=== PATIENT | male | born 1950 | race Caucasian/White ===

== ENCOUNTER → 2016-10-11 | Outpatient (CLI) | payer BC ==
[~2016-10-11] MED LIST: AMLO5CAP3 PO; AZAT50TA17 PO; BUPRTAB51 PO; BUSP5TAB59 PO; CELE100C PO; CLOP1TAB15 PO; COQ PO; ESCI1TAB10 PO; HYDR12.55 PO; KETO2SHA TOP; METO25TA3 PO; MULT-513 PO; NITR0.4S UT; RMCI IV; ROSU40TA PO; ZNTT/150 PO; ZOLP10TA PO
--- NOTE | 2016-10-11 12:32 | DIAGNOSTIC IMAGING REPORT ---
CHEST 2 VIEWS ROUTINE CLINICAL HISTORY: COUGH dyspnea COMPARISON STUDY: 06/20/2014 FINDINGS: Small parenchymal infiltrate medial posterior aspect left lower lobe. Lungs otherwise appear clear. Prior median sternotomy. IMPRESSION: Small parenchymal infiltrate posterior aspect medial left lower lobe Electronically signed by: Tao Dai M.D. 10/11/2016 12:31 PM Dictated Date/Time: 10/11/2016 12:29 PM
== END | disposition home or self-care (01) ==
LOC: C.RAD1850 12:08
PROVIDERS: ATTEND Nurse Practitioner Family
DX: R05 Cough (principal); R06.00 Dyspnea, unspecified; R91.8 Other nonspecific abnormal finding of lung field

== ENCOUNTER → 2016-10-18 | Outpatient (CLI) | payer BC ==
--- NOTE | 2016-10-18 10:30 | DIAGNOSTIC IMAGING REPORT ---
CHEST 2 VIEWS ROUTINE HISTORY: COUGH COMPARISON: Chest 10/11/2016. FINDINGS: Postoperative changes. The heart remains mildly enlarged. No pleural effusions. No pneumothorax. No new focal lung consolidations to suggest pneumonia. No evidence for pulmonary edema. Bibasilar interstitial thickening remains unchanged. Therefore, this is likely chronic. Hazy appearance the left lung base likely represents prominent mediastinal fat. This also remains unchanged. IMPRESSION: No significant change compared to the prior study. No acute process. Electronically signed by: Robert Gallo M.D. 10/18/2016 10:28 AM Dictated Date/Time: 10/18/2016 10:27 AM
== END | disposition home or self-care (01) ==
LOC: C.RAD1850 09:55
PROVIDERS: ATTEND Nurse Practitioner Family
DX: R05 Cough (principal)

== ENCOUNTER 2016-12-07 17:12 | Emergency (ER) | payer BC ==
[~2016-12-07] VITALS: Ht 182.9 cm; Wt 107.0 kg
[2016-12-07 17:12] VITALS: O2SAT 94
[~2016-12-07 17:12] MED LIST changes: -CLOP1TAB15 PO
[2016-12-07 17:14] VITALS: TEMP 36.8; Ht 182.9 cm; Wt 107.0 kg
--- NOTE | 2016-12-07 17:30 | EMERGENCY ROOM VISIT NOTE ---
History Report prepared by Patrick: Dangelo Wellington Under the Supervision of: Dr. Natan Sarmiento M.D. 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 Associated symptoms include tingling in right fingers, and shortness of breath. The patient states that he was walking to his car after work today when he first became dizzy. He leaned against his car for a few minutes before coming in to the ED. The patient has a history of two past heart attacks. He also has a history of neuropathy. He denies any chest pain or additional associated symptoms. 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 Please see Additional Medical History Sheet. Past Medical & Surgical Medical Problems: (1) Depressive Disorder Nec (2) Esophageal Reflux (3) HTN (hypertension) (4) Hyperlipidemia Nec/Nos (5) CT (myocardial infarction) (6) Pure Hypercholesterolem Surgical Problems: (1) Hx of CABG Family History Gallbladder disease Heart disease Hypertension Social History Smoking Status: Never Smoker Alcohol Use: none Drug Use: none Marital Status: Housing Status: lives with family Occupation Status: employed Current/Historical Medications Scheduled Amlodipine Besylate-Benazepril (Amlodipine Besylate/Benaz), 1 CAP PO DAILY Azathioprine (Imuran), 50 MG PO BID Bupropion (Wellbutrin-Xl), 300 MG PO DAILY Buspirone Hcl (Buspirone Hcl), 10 MG PO BID Celecoxib (Celebrex), 100 MG PO DAILY Clopidogrel (Plavix), 75 MG PO DAILY Escitalopram Oxalate (Lexapro), 20 MG PO DAILY Hydrochlorothiazide (Hydrochlorothiazide), 12.5 MG PO DAILY Infliximab (Remicade), IV UD Multivitamins/Minerals (Mvi With Minerals), 1 TAB PO DAILY Nitroglycerin (Nitrostat), 0.4 MG UT PRN Ranitidine (Zantac), 150 MG PO DAILY Rosuvastatin Calcium (Crestor), 40 MG PO HS Zolpidem Tartrate (Ambien), 10 MG PO HS Allergies Coded Allergies: Amoxicillin (Verified Allergy, Severe, face swelling, 10/16/15) Physical Exam Vital Signs Date Time Temp Pulse Resp B/P Pulse Ox O2 Delivery O2 Flow Rate FiO2 12/07/16 20:53 67 18 156/92 94 Room Air 12/07/16 19:15 12/07/16 19:15 61 18 142/80 95 Room Air 64 148/86 75 157/91 12/07/16 17:48 58 22 142/86 94 12/07/16 17:42 58 12/07/16 17:14 36.8 71 16 161/92 95 Room Air 12/07/16 17:12 94 Physical Exam GENERAL: Patient awake, alert, oriented x 3. Patient follows commands. Patient does not appear toxic. Patient is adequately hydrated and well- nourished. SKIN: No erythema, pallor, cyanosis or rash HEENT: No nystagmus, carotids strong and equal. No focal deficits noted. Normal head, pupils equal, reactive to light and accommodation. Oral cavity and posterior pharynx appear normal. Neck: Without adenopathy, no neck vein distention. LUNGS: Clear to auscultation. No wheezes, no rales, no rhonchi. HEART: No murmurs. No gallops. No rubs ABDOMEN: Obese. No masses, no rebound, no hepatomegaly or splenomegaly. EXTREMITIES: Moves all extremities well. No signs of trauma. No pedal or pretibial edema. NEUROLOGIC: Cranial nerves II-XII within normal limits. No gross motor sensory function deficits. Medical Decision & Procedures ER Provider Diagnostic Interpretation: CT results are interpretations by the radiologist and per my review. CT OF THE HEAD WITHOUT CONTRAST CLINICAL HISTORY: Dizzy. COMPARISON STUDY: CTA of the head July 22, 2014 and MRI of the brain February 10, 2016. CT DOSE: 700.35 mGycm TECHNIQUE: Helical axial images of the head were obtained without IV contrast. Automated exposure control was utilized for the study. FINDINGS: No acute intracranial hemorrhage, midline shift or mass effect is present. Ventricular system is stable. Basilar cisterns are patent. No extra axial collections are present. Donis-white differentiation is maintained. There are no findings to suggest acute dural sinus thrombosis or acute territorial infarct. There is no calvarial fracture. There is mild mucosal thickening of the sinuses. IMPRESSION: No acute intracranial findings. Electronically signed by: Andrea Rivera M.D. 12/07/2016 6:06 PM Dictated Date/Time: 12/07/2016 6:04 PM X ray results are stated below per my interpretation and the radiologist's interpretation. CHEST 2 VIEWS ROUTINE CLINICAL HISTORY: Dizzy. COMPARISON STUDY: Chest radiograph October 18, 2016. FINDINGS: There are median sternotomy wires and clips from bypass grafting. No pneumothorax or pleural effusion is present. Cardiomegaly is unchanged. The appearance the chest is unchanged. IMPRESSION: No acute cardiopulmonary findings. Stable cardiomegaly. Electronically signed by: Andrea Rivera M.D. 12/07/2016 6:21 PM Dictated Date/Time: 12/07/2016 6:20 PM Laboratory Results 12/07/16 17:36 12/07/16 17:36 Test 12/07/16 00:00 12/07/16 17:36 Urine Color YELLOW Urine Appearance CLEAR (CLEAR) Urine pH 6.5 (4.5-7.5) Urine Specific [place] 1.016 (1.000-1.030) Urine Protein NEG (NEG) Urine Glucose (UA) NEG (NEG) Urine Ketones NEG (NEG) Urine Occult Blood NEG (NEG) Urine Nitrite NEG (NEG) Urine Bilirubin NEG (NEG) Urine Urobilinogen NEG (NEG) Urine Leukocyte Esterase NEG (NEG) Red Blood Count 4.61 M/uL (4.7-6.1) Mean Corpuscular Volume 91.3 fL (80-100) Mean Corpuscular Hemoglobin 31.0 pg (25-34) Mean Corpuscular Hemoglobin Concent 34.0 g/dl (32-36) RDW Standard Deviation 46.1 fL (36.4-46.3) RDW Coefficient of Variation 13.8 % (11.5-14.5) Mean Platelet Volume 8.9 fL (7.4-10.4) Anion Gap 7.0 mmol/L (3-11) Est Creatinine Clear Calc Drug Dose 90.6 ml/min Estimated GFR () 89.9 Estimated GFR (Non- 77.5 BUN/Creatinine Ratio 19.5 (10-20) Calcium Level 8.8 mg/dl (8.5-10.1) Troponin I < 0.015 ng/ml (0-0.045) Laboratory results as stated above per my review. ECG Rate (beats per minute): 62 Rhythm: sinus rhythm Findings: nonspecific-ST abn, left axis deviation ED Course 171: Past medical records reviewed. The patient was evaluated in room A12. A complete history and physical examination was performed. 2007: Upon reevaluation, the patient reports feeling great. He will complete an ambulatory trial for further evaluation. 2029: Patient's ambulatory trial went well. I discussed today's findings with the patient and his . They verbalized agreement of the treatment plan. The patient was discharged home with instructions to follow up with Dr. Koo. Medical Decision Nurses notes reviewed. Medical history sheet reviewed. Differential diagnosis includes but is not limited to: TIA, CVA, benign positional vertigo, vestibular neuronitis, anemia, Meniere's disease. The patient complains of dizziness but not true vertigo. Multiple labs, EKG, urinalysis and imaging were evaluated. Please see above. The patient has no evidence of a TIA or CVA on exam or by imaging. Labs are unremarkable. The patient's dizziness resolved without medication. I believe the patient can safely return home but will need to follow-up with his family physician within the next 7 days. He is to return here sooner if the dizziness gets worse. Impression Primary Impression: Dizziness Scribe Attestation The scribe's documentation has been prepared under my direction and personally reviewed by me in its entirety. I confirm that the note above accurately reflects all work, treatment, procedures, and medical decision making performed by me. Departure Information Dispostion Home / Self-Care Referrals Lacho Koo M.D. (PCP) Forms HOME CARE DOCUMENTATION FORM, IMPORTANT VISIT INFORMATION Patient Instructions My [facility] Additional Instructions Follow-up with your family physician within the next 7 days. Return here sooner if the dizziness gets much worse. Drink extra fluids.
[2016-12-07 17:46] LABS: HEMATOCRIT 42.1 % (42-52); MEAN CELL VOLUME 91.3 fL (80-100); MEAN PLATELET VOLUME 8.9 fL (7.4-10.4); PLATELET COUNT 201 K/uL (130-400); RED BLOOD COUNT 4.61 M/uL (4.7-6.1); WHITE BLOOD COUNT 6.64 K/uL (4.8-10.8)
[2016-12-07 18:05] LABS: BLOOD UREA NITROGEN 20 mg/dl (7-18); BUN/CREATININE RATIO 19.5 (10-20); CALCIUM 8.8 mg/dl (8.5-10.1); CARBON DIOXIDE 26 mmol/L (21-32); CHLORIDE 107 mmol/L (98-107); GLUCOSE 95 mg/dl (70-99); POTASSIUM 3.6 mmol/L (3.5-5.1); SODIUM 140 mmol/L (136-145)
--- NOTE | 2016-12-07 18:08 | DIAGNOSTIC IMAGING REPORT ---
CT OF THE HEAD WITHOUT CONTRAST CLINICAL HISTORY: Dizzy. COMPARISON STUDY: CTA of the head July 22, 2014 and MRI of the brain February 10, 2016. CT DOSE: 700.35 mGycm TECHNIQUE: Helical axial images of the head were obtained without IV contrast. Automated exposure control was utilized for the study. FINDINGS: No acute intracranial hemorrhage, midline shift or mass effect is present. Ventricular system is stable. Basilar cisterns are patent. No extra axial collections are present. Donis-white differentiation is maintained. There are no findings to suggest acute dural sinus thrombosis or acute territorial infarct. There is no calvarial fracture. There is mild mucosal thickening of the sinuses. IMPRESSION: No acute intracranial findings. Electronically signed by: Andrea Rivera M.D. 12/07/2016 6:06 PM Dictated Date/Time: 12/07/2016 6:04 PM
[2016-12-07] MEDS ORDERED: CLOP1TAB15 PO (18:10)
--- NOTE | 2016-12-07 18:23 | DIAGNOSTIC IMAGING REPORT ---
CHEST 2 VIEWS ROUTINE CLINICAL HISTORY: Dizzy. COMPARISON STUDY: Chest radiograph October 18, 2016. FINDINGS: There are median sternotomy wires and clips from bypass grafting. No pneumothorax or pleural effusion is present. Cardiomegaly is unchanged. The appearance the chest is unchanged. IMPRESSION: No acute cardiopulmonary findings. Stable cardiomegaly. Electronically signed by: Andrea Rivera M.D. 12/07/2016 6:21 PM Dictated Date/Time: 12/07/2016 6:20 PM
[2016-12-07 19:37] LABS: URINE APPEARANCE CLEAR (CLEAR); URINE BILIRUBIN NEG (NEG); URINE COLOR YELLOW; URINE NITRITE NEG (NEG); URINE PH 6.5 (4.5-7.5); URINE SPECIFIC GRAVITY 1.016 (1.000-1.030); UROBILINOGEN NEG (NEG); ZZUR CULT IF INDIC CLEAN CATCH NO
[2016-12-07 19:47] LABS: MANUAL MICROSCOPIC REQUIRED? NO; REVIEW REQ? NO
[2016-12-07 20:53] VITALS: BP 156/92; PULSE 67; O2SAT 94
== END 2016-12-07 20:54 | disposition home or self-care (01) ==
LOC: C.EDB 17:13 → C.EDA 20:54
DX: R42 Dizziness and giddiness (principal); R06.02 Shortness of breath; I10 Essential (primary) hypertension; E78.00 Pure hypercholesterolemia, unspecified; K21.9 Gastro-esophageal reflux disease without esophagitis; F32.9 Major depressive disorder, single episode, unspecified; I25.2 Old myocardial infarction; Z79.02 Long term (current) use of antithrombotics/antiplatelets; Z79.899 Other long term (current) drug therapy

== ENCOUNTER → 2016-12-20 | Outpatient (CLI) | payer BC ==
[~2016-12-20] MED LIST changes: +CLOP1TAB15 PO; -COQ PO; -KETO2SHA TOP; -METO25TA3 PO
--- NOTE | 2016-12-20 17:41 | DIAGNOSTIC IMAGING REPORT ---
Brain MRI WITHOUT CONTRAST HISTORY: Mental status change DIZZY TECHNIQUE: Multiplanar multisequence MRI of the brain was performed without the use of contrast. COMPARISON STUDY: 02/10/2016 FINDINGS: There are no areas of restricted diffusion to suggest acute infarction. The midline structures are intact. The paranasal sinuses are clear. The mastoid air cells are clear. The ventricles and sulci are within normal limits for age. There is no mass, hematoma, midline shift. The major vascular flow-voids at the skull base are well maintained. Single focus of increased signal medially superior to the left lateral ventricle unchanged in the prior study. IMPRESSION: No acute intracranial abnormality. No change from the prior exam. Electronically signed by: Tao Dai M.D. 12/20/2016 5:39 PM Dictated Date/Time: 12/20/2016 5:37 PM
== END ==
PROVIDERS: ATTEND Family Medicine
DX: R42 Dizziness and giddiness (principal)

== ENCOUNTER → 2017-09-13 | Outpatient (CLI) | payer OTHER ==
--- NOTE | 2017-09-13 12:48 | DIAGNOSTIC IMAGING REPORT ---
CHEST 2 VIEWS ROUTINE CLINICAL HISTORY: J11.1,R05 INFLUENZA COMPARISON STUDY: 12/07/2016 FINDINGS: There are postsurgical changes of midline sternotomy. The heart is enlarged. There is no lobar consolidation. There is mild basilar interstitial thickening. There are no pleural effusions.[ IMPRESSION: 1. Cardiomegaly 2. No evidence of lobar consolidation 3. Mild basilar interstitial thickening Electronically signed by: Shawn Snow M.D. 09/13/2017 12:47 PM Dictated Date/Time: 09/13/2017 12:46 PM
== END | disposition home or self-care (01) ==
LOC: C.RAD1850 12:22
PROVIDERS: ATTEND Family Medicine
DX: J11.1 Influenza due to unidentified influenza virus with other respiratory manifestations (principal); R05 Cough; I51.7 Cardiomegaly

== ENCOUNTER → 2017-10-17 | Day surgery (SDC) | payer OTHER ==
[2017-10-04 11:11] VITALS: Ht 182.9 cm; Wt 109.1 kg
[~2017-10-17] VITALS: Ht 182.9 cm; Wt 109.1 kg
[~2017-10-17] MED LIST changes: +AMLO10CA2 PO; -AMLO5CAP3 PO; -AZAT50TA17 PO; -BUSP5TAB59 PO; -CELE100C PO; +CLB100 PO; +COQ10 PO; +FENTANYL CITRATE INJ 50 MCG/1 ML 2 ML VIAL ONE; +FLUT0.15 NAE; +GLUCTAB7 PO; -HYDR12.55 PO; +HYDR25TA4 PO; +KETO2SHA TOP; +LIDOCAINE HCL 2% 2 ML VIAL (20MG/ML) ONE; +MIDAZOLAM HCL 1 MG/ML 2ML VIAL ONE; -MULT-513 PO; -NITR0.4S UT; +NTRGSL/4 UT; +PANT40TA PO; +PROPOFOL IV EMULSION 10 MG/ML 20 ML VIAL IV ONE; +VITAMIN B12 PO; +VITAMIN B6 PO; +VITAMIN D PO; -ZNTT/150 PO
--- NOTE | 2017-10-17 13:50 | Endo History and Physical ---
History & Physical Date of Service: Oct 17, 2017. 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., Anxiety, High Cholesterol, Hypertension, Depression Past Surgical History Hx Cardiac Surgery: Yes (HEART CATH/NO STENTS, CABGX 1 VESSELS) Hx Internal Defibrillator: No Hx Pacemaker: No Hx Abdominal Surgery: No Hx of Implantable Prosthesis: No Hx Post-Op Nausea and Vomiting: No Hx Cancer Surgery: No Hx Thoracic Surgery: No Hx Orthopedic: Yes (LEFT JOSE ANGEL, RT SHOULDER ARTHROSCOPY) Hx Urinary Tract Surgery: No Family History Polyp, IBD Social History Smoking Status: Never Smoker Hx Substance Use: No Hx Alcohol Use: Yes (RARELY) Allergies Coded Allergies: Amoxicillin (Verified Allergy, Severe, face swelling, 10/11/17) Current Medications Reported Home Medications Medications Dose Route/Sig Max Daily Dose Days Date Category Dose Instructions Remicade (Infliximab) 100 Mg/10 Ml Inj 1 Dose IV [id number] 10/04/17 Reported Glucosamine Chondroitin (Pscmnmickzr-Hhsllezydkg-Pnt C-) 1 Tab Tab 1 Dose PO BID 10/04/17 Reported 2 TABS IN AM 1 TAB IN PM [Coq10] 1 Tab PO BID 10/04/17 Reported Wellbutrin-Xl (Bupropion HCl) 300 Mg Tabcr 300 Mg PO QAM 10/04/17 Reported Lexapro (Escitalopram Oxalate) 20 Mg Tab 20 Mg PO QAM 10/04/17 Reported Ambien (Zolpidem Tartrate) 10 Mg Tab 10 Mg PO HS 10/04/17 Reported [Vitamin B6] 1 Tab PO QAM 10/04/17 Reported Nitrostat (Nitroglycerin) 0.4 Mg Tab 0.4 Mg UT PRN PRN 10/04/17 Reported [Vitamin D] 1 Tab PO QAM 10/04/17 Reported [Vitamin B12] 1 Tab PO QAM 10/04/17 Reported Lotrel (Amlodipine Besylate-Benazepril) 1 Cap Cap 1 Cap PO QAM 10/04/17 Reported DOSE 10/40 Ketoconazole (Ketoconazole (Topical)) 2 % Sha 1 Appln TOP 2XWK 10/04/17 Reported Crestor (Rosuvastatin Calcium) 40 Mg Tab 40 Mg PO QPM 10/04/17 Reported Plavix (Clopidogrel Bisulfate) 75 Mg Tab 75 Mg PO QAM 10/04/17 Reported Hctz (Hydrochlorothiazide) 25 Mg Tab 25 Mg PO QAM 10/04/17 Reported Celebrex (Celecoxib) 100 Mg Cap 1 Cap PO QAM 10/04/17 Reported Protonix (Pantoprazole Sodium) 40 Mg Tab 2 Tab PO HS 10/04/17 Reported Flonase Allergy Relief (Fluticasone Propionate (Nasal)) 50 Mcg/Act Spr 1 [place] KEYSHAWN DIRECTED 10/04/17 Reported Vital Signs Weight (Kilograms): 109.09 Height (Feet): 6 Height (Inches): 0 Physical Exam General Appearance: WD/WN, no apparent distress Respiratory/Chest: Respiratory effort: no dyspnea Cardiovascular: Heart Auscultation: RRR Abdomen: Inspection & Palpation: soft (UC for surveillance clonoscopy) Assessment and Plan UC for colonoscopy
--- NOTE | 2017-10-17 13:53 | Endo History and Physical ---
History & Physical Date of Service: Oct 17, 2017. Chief Complaint: Hx of tubular adenoma Referring Physician: Maurilio History of Present Illness For colonoscopy Past Medical History Arthritis, Male Genitourinary Prob., Anxiety, High Cholesterol, Hypertension, Depression Past Surgical History Hx Cardiac Surgery: Yes (HEART CATH/NO STENTS, CABGX 1 VESSELS) Hx Internal Defibrillator: No Hx Pacemaker: No Hx Abdominal Surgery: No Hx of Implantable Prosthesis: No Hx Post-Op Nausea and Vomiting: No Hx Cancer Surgery: No Hx Thoracic Surgery: No Hx Orthopedic: Yes (LEFT JOSE ANGEL, RT SHOULDER ARTHROSCOPY) Hx Urinary Tract Surgery: No Family History Polyp, IBD Social History Smoking Status: Never Smoker Hx Substance Use: No Hx Alcohol Use: Yes (RARELY) Allergies Coded Allergies: Amoxicillin (Verified Allergy, Severe, face swelling, 10/17/17) Current Medications Reported Home Medications Medications Dose Route/Sig Max Daily Dose Days Date Category Dose Instructions Remicade (Infliximab) 100 Mg/10 Ml Inj 1 Dose IV [id number] 10/04/17 Reported Glucosamine Chondroitin (Tqumihvvumh-Ydepjybeiho-Pew C-) 1 Tab Tab 1 Dose PO BID 10/04/17 Reported 2 TABS IN AM 1 TAB IN PM [Coq10] 1 Tab PO BID 10/04/17 Reported Wellbutrin-Xl (Bupropion HCl) 300 Mg Tabcr 300 Mg PO QAM 10/04/17 Reported Lexapro (Escitalopram Oxalate) 20 Mg Tab 20 Mg PO QAM 10/04/17 Reported Ambien (Zolpidem Tartrate) 10 Mg Tab 10 Mg PO HS 10/04/17 Reported [Vitamin B6] 1 Tab PO QAM 10/04/17 Reported Nitrostat (Nitroglycerin) 0.4 Mg Tab 0.4 Mg UT PRN PRN 10/04/17 Reported [Vitamin D] 1 Tab PO QAM 10/04/17 Reported [Vitamin B12] 1 Tab PO QAM 10/04/17 Reported Lotrel (Amlodipine Besylate-Benazepril) 1 Cap Cap 1 Cap PO QAM 10/04/17 Reported DOSE 10/40 Ketoconazole (Ketoconazole (Topical)) 2 % Sha 1 Appln TOP 2XWK 10/04/17 Reported Crestor (Rosuvastatin Calcium) 40 Mg Tab 40 Mg PO QPM 10/04/17 Reported Plavix (Clopidogrel Bisulfate) 75 Mg Tab 75 Mg PO QAM 10/04/17 Reported Hctz (Hydrochlorothiazide) 25 Mg Tab 25 Mg PO QAM 10/04/17 Reported Celebrex (Celecoxib) 100 Mg Cap 1 Cap PO QAM 10/04/17 Reported Protonix (Pantoprazole Sodium) 40 Mg Tab 2 Tab PO HS 10/04/17 Reported Flonase Allergy Relief (Fluticasone Propionate (Nasal)) 50 Mcg/Act Spr 1 Driscoll KEYSHAWN DIRECTED 10/04/17 Reported Vital Signs Weight (Kilograms): 109.09 Height (Feet): 6 Height (Inches): 0 Date Time Temp Pulse Resp B/P (MAP) Pulse Ox O2 Delivery O2 Flow Rate FiO2 10/17/17 13:28 36.7 60 16 140/77 (98) 95 Room Air Physical Exam General Appearance: WD/WN Respiratory/Chest: Respiratory effort: no dyspnea Cardiovascular: Heart Auscultation: RRR Abdomen: Inspection & Palpation: soft (UC for colonoscopy) Assessment and Plan UC for colonoscopy
--- NOTE | 2017-10-17 14:40 | Discharge Instructions ---
Endoscopy Patient Instructions Date / Procedure(s) Performed Oct 17, 2017. Colonoscopy Allergy Information Coded Allergies: Amoxicillin (Verified Allergy, Severe, face swelling, 10/17/17) Discharge Date / Findings Oct 17, 2017. Diverticulosis Medication Instructions Stopped Medication(s): Plavix last 10/12 Restart Stopped Medication(s): resume meds Reported Home Medications Medications Dose Route/Sig Max Daily Dose Days Date Category Dose Instructions Remicade (Infliximab) 100 Mg/10 Ml Inj 1 Dose IV [id number] 10/04/17 Reported Glucosamine Chondroitin (Wchgqfdmbuq-Dljswwwcmip-Yva C-) 1 Tab Tab 1 Dose PO BID 10/04/17 Reported 2 TABS IN AM 1 TAB IN PM [Coq10] 1 Tab PO BID 10/04/17 Reported Wellbutrin-Xl (Bupropion HCl) 300 Mg Tabcr 300 Mg PO QAM 10/04/17 Reported Lexapro (Escitalopram Oxalate) 20 Mg Tab 20 Mg PO QAM 10/04/17 Reported Ambien (Zolpidem Tartrate) 10 Mg Tab 10 Mg PO HS 10/04/17 Reported [Vitamin B6] 1 Tab PO QAM 10/04/17 Reported Nitrostat (Nitroglycerin) 0.4 Mg Tab 0.4 Mg UT PRN PRN 10/04/17 Reported [Vitamin D] 1 Tab PO QAM 10/04/17 Reported [Vitamin B12] 1 Tab PO QAM 10/04/17 Reported Lotrel (Amlodipine Besylate-Benazepril) 1 Cap Cap 1 Cap PO QAM 10/04/17 Reported DOSE 10/40 Ketoconazole (Ketoconazole (Topical)) 2 % Sha 1 Appln TOP 2XWK 10/04/17 Reported Crestor (Rosuvastatin Calcium) 40 Mg Tab 40 Mg PO QPM 10/04/17 Reported Plavix (Clopidogrel Bisulfate) 75 Mg Tab 75 Mg PO QAM 10/04/17 Reported Hctz (Hydrochlorothiazide) 25 Mg Tab 25 Mg PO QAM 10/04/17 Reported Celebrex (Celecoxib) 100 Mg Cap 1 Cap PO QAM 10/04/17 Reported Protonix (Pantoprazole Sodium) 40 Mg Tab 2 Tab PO HS 10/04/17 Reported Flonase Allergy Relief (Fluticasone Propionate (Nasal)) 50 Mcg/Act Spr 1 Sadorus KEYSHAWN DIRECTED 2/20/18 Reported Provider Instructions Activity Restrictions - No exercising or heavy lifting for 24 hours. - Do not drink alcohol the day of the procedure. - Do not drive a car or operate machinery until the day after the procedure. - Do not make any important decisions or sign important papers in 24 hours after the procedure. Following Day: - Return to full activity which may include returning to work/school. Diet Start your diet with liquids and light foods (jello, soup, juice, toast). Then eat your usual diet if not nauseated. Treatment For Common After Affects For mild abdominal pain, bloating, or excessive gas: - Rest - Eat lightly - Lie on right side Follow-Up Information Follow-up with Maurilio as scheduled Anesthesia Information What You Should Know You have had a procedure that required some medicine to reduce anxiety and discomfort. This treatment is called moderate sedation. After receiving the treatment, you may be sleepy, but you will be able to breathe on your own. The effects of the treatment may last for several hours. Follow these instructions along with Activity/Diet recommendations noted above: * Do NOT do anything where dizziness or clumsiness would be dangerous. * Rest quietly at home today, then you can be up and about tomorrow. * Have a responsible person stay with you the rest of today. * You may have had an I.V. today. If so, you may take the dressing off later today. Recommendations Call your doctor if: * Trouble breathing * Continuous vomiting for more than 24 hours * Temperature above 101 degrees * Severe abdominal pain or bloating * Pain not relieved by pain medicine ordered * There is increased drainage or redness from any incision * A large amount of rectal bleeding greater than 2-3 tablespoons. (If you had a polyp/s removed or have hemorrhoids, a small amount of blood - from the rectum is to be expected.) * You have any unanswered questions or concerns. IN THE EVENT OF A SERIOUS EMERGENCY, GO TO THE NEAREST EMERGENCY ROOM Your discharge instructions were prepared by provider Ramses Campbell. Patient Instructions Signature Page Chun Hernandez Patient (or Guardian) Signature/Date: I have read and understand the instructions given to me by my caregivers. Caregiver/RN/Doctor Signature/Date: The above-named patient and/or guardian has received patient instructions on this date. + Original Patient Signature Page (only) stays with chart. Please make copy for patient.
--- NOTE | 2017-10-17 14:45 | GI REPORT ---
Procedure Date: 10/17/2017 1:30 PM Procedure: Colonoscopy Indications: Follow-up of chronic ulcerative pancolitis Medicines: Fentanyl 100 micrograms IV, Midazolam 2 mg IV, Propofol total dose 150 mg IV, Lidocaine 40 mg IV Complications: No immediate complications. Estimated Blood Loss: Estimated blood loss was minimal. Procedure: Pre-Anesthesia Assessment: - Prior to the procedure, a History and Physical was performed, and patient medications, allergies and sensitivities were reviewed. The patient's tolerance of previous anesthesia was reviewed. - The risks and benefits of the procedure and the sedation options and risks were discussed with the patient. All questions were answered and informed consent was obtained. After I obtained informed consent, the scope was passed under direct vision. Throughout the procedure, the patient's blood pressure, pulse, and oxygen saturations were monitored continuously. The Scope was introduced through the anus and advanced to the cecum, identified by appendiceal orifice and ileocecal valve. The colonoscopy was performed without difficulty. The patient tolerated the procedure well. The quality of the bowel preparation was excellent. Findings: A few diverticula were found in the sigmoid colon. The cecum appeared normal. Biopsies were taken with a cold forceps for histology. The ascending colon appeared normal. Biopsies were taken with a cold forceps for histology. The hepatic flexure appeared normal. Biopsies were taken with a cold forceps for histology. The transverse colon appeared normal. Biopsies were taken with a cold forceps for histology. The splenic flexure appeared normal. Biopsies were taken with a cold forceps for histology. The descending colon appeared normal. Biopsies were taken with a cold forceps for histology. The sigmoid colon appeared normal. Biopsies were taken with a cold forceps for histology. The rectum appeared normal. Biopsies were taken with a cold forceps for histology. Impression: - Diverticulosis in the sigmoid colon. - The cecum is normal. Biopsied. - The ascending colon is normal. Biopsied. - The hepatic flexure is normal. Biopsied. - The transverse colon is normal. Biopsied. - The splenic flexure is normal. Biopsied. - The descending colon is normal. Biopsied. - The sigmoid colon is normal. Biopsied. - The rectum is normal. Biopsied. Recommendation: - Discharge patient to home (ambulatory). - Continue present medications. - Await pathology results. - Return to primary care physician PRN. Kyle Martines MD 10/17/2017 2:45:03 PM This report has been signed electronically. Note Initiated On: 10/17/2017 1:30 PM I attest to the content of the Intraoperative Record and orders documented therein, exceptions below
--- NOTE | 2017-10-17 15:04 | Anesthesiology Progress Note ---
Anesthesia Post Op Note Date & Time Oct 17, 2017 at 15:04 Vital Signs Pain Intensity: 0 Vital Signs Past 12 Hours Date Time Temp Pulse Resp B/P (MAP) Pulse Ox O2 Delivery O2 Flow Rate FiO2 10/17/17 14:51 68 18 135/81 (99) 96 Room Air 10/17/17 14:36 36.0 59 12 131/81 (98) 93 Room Air 10/17/17 13:28 36.7 60 16 140/77 (98) 95 Room Air Notes Mental Status: alert / awake / arousable, participated in evaluation Pt Amnestic to Procedure: Yes Nausea / Vomiting: adequately controlled Pain: adequately controlled Airway Patency, RR, SpO2: stable & adequate BP & HR: stable & adequate Hydration State: stable & adequate Anesthetic Complications: no major complications apparent
[2017-10-17 15:06] VITALS: BP 139/80; PULSE 55; O2SAT 94
== END | disposition home or self-care (01) ==
LOC: C.GI 13:02
PROVIDERS: ATTEND Internal Medicine Gastroenterology
DX: K51.00 Ulcerative (chronic) pancolitis without complications (principal); K57.30 Diverticulosis of large intestine without perforation or abscess without bleeding; Z86.010 Personal history of colon polyps; M19.90 Unspecified osteoarthritis, unspecified site; F41.9 Anxiety disorder, unspecified; E78.00 Pure hypercholesterolemia, unspecified; I10 Essential (primary) hypertension; F32.9 Major depressive disorder, single episode, unspecified; G47.33 Obstructive sleep apnea (adult) (pediatric); I25.2 Old myocardial infarction; E78.5 Hyperlipidemia, unspecified; K21.9 Gastro-esophageal reflux disease without esophagitis; K58.9 Irritable bowel syndrome, unspecified; Z96.642 Presence of left artificial hip joint; Z79.02 Long term (current) use of antithrombotics/antiplatelets; Z83.71 Family history of colonic polyps; Z95.1 Presence of aortocoronary bypass graft; Z88.1 Allergy status to other antibiotic agents; Z90.89 Acquired absence of other organs

== ENCOUNTER 2017-10-21 06:04 | Inpatient (IN) | payer OTHER ==
[2017-10-04 11:24] VITALS: Ht 182.9 cm; Wt 109.1 kg
--- NOTE | 2017-10-11 10:56 | PAT Medication Instructions ---
Service Date Oct 11, 2017. Current Home Medication List Amlodipine Besylate-Benazepril (Lotrel), 1 CAP PO QAM Bupropion (Wellbutrin-Xl), 300 MG PO QAM Celecoxib (Celebrex), 1 CAP PO QAM Clopidogrel (Plavix), 75 MG PO QAM Escitalopram Oxalate (Lexapro), 20 MG PO QAM Fluticasone Propionate (Nasal) (Flonase Allergy Relief), 1 SPRAY KEYSHAWN DIRECTED Auabonrjlog-Kpswzlpxxrj-Zdm C- (Glucosamine Chondroitin), 1 DOSE PO BID Hydrochlorothiazide (Hctz), 25 MG PO QAM Infliximab (Remicade), 1 DOSE IV [id number] Ketoconazole (Topical) (Ketoconazole), 1 APPLN TOP 2XWK Nitroglycerin (Nitrostat), 0.4 MG UT PRN PRN for Chest Pain Pantoprazole (Protonix), 2 TAB PO HS Rosuvastatin Calcium (Crestor), 40 MG PO QPM Zolpidem Tartrate (Ambien), 10 MG PO HS [Coq10], 1 TAB PO BID [Vitamin B12], 1 TAB PO QAM [Vitamin B6], 1 TAB PO QAM [Vitamin D], 1 TAB PO QAM Medication Instructions For Your Scheduled Surgery - Contact your surgeon for instructions for: Celecoxib (Celebrex), 1 CAP PO QAM -Follow your prescriber's instructions for: Infliximab (Remicade), 1 DOSE IV [id number] - Continue as directed: Nitroglycerin (Nitrostat), 0.4 MG UT PRN PRN for Chest Pain - Hold the following medications starting today (10/11): Nsravbdezmq-Rdmhnedlhdn-Bmq C- (Glucosamine Chondroitin), 1 DOSE PO BID [Coq10], 1 TAB PO BID - Hold the following medications 5 days prior to surgery per your 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: Clopidogrel (Plavix), 75 MG PO QAM - Hold the following medications 24 hours prior to surgery: Ketoconazole (Topical) (Ketoconazole), 1 APPLN TOP 2XWK - Hold the following medications the morning of surgery: Amlodipine Besylate-Benazepril (Lotrel), 1 CAP PO QAM Hydrochlorothiazide (Hctz), 25 MG PO QAM [Vitamin B12], 1 TAB PO QAM [Vitamin B6], 1 TAB PO QAM [Vitamin D], 1 TAB PO QAM - Take the following medications the morning of surgery with a sip of water: Bupropion (Wellbutrin-Xl), 300 MG PO QAM Escitalopram Oxalate (Lexapro), 20 MG PO QAM Fluticasone Propionate (Nasal) (Flonase Allergy Relief), 1 SPRAY KEYSHAWN DIRECTED - Take the following medications as scheduled the night before surgery: Fluticasone Propionate (Nasal) (Flonase Allergy Relief), 1 SPRAY KEYSHAWN DIRECTED Pantoprazole (Protonix), 2 TAB PO HS Rosuvastatin Calcium (Crestor), 40 MG PO QPM Zolpidem Tartrate (Ambien), 10 MG PO HS If you have any questions please call us at [phone] or [phone] or [phone]
[2017-10-11 11:55] LABS: BASO % 0.1 %; BASO ABS # 0.01 K/uL (0-0.2); EOS % 1.6 %; EOS ABS # 0.12 K/uL (0-0.5); HEMATOCRIT 42.6 % (42-52); HEMOGLOBIN 15.1 g/dL (14.0-18.0); IG# 0.01 K/uL (0.00-0.02); LYMPH % 33.8 %; LYMPH ABS # 2.52 K/uL (1.2-3.4); MEAN CELL VOLUME 89.9 fL (80-100); MEAN CORPUSCULAR HEMOGLOBIN 31.9 pg (25-34); MEAN CORPUSCULAR HGB CONC 35.4 g/dl (32-36); MEAN PLATELET VOLUME 9.5 fL (7.4-10.4); MONO % 8.5 %; MONO ABS # 0.63 K/uL (0.11-0.59); NEUT % 55.9 %; NEUT ABS # 4.16 K/uL (1.4-6.5); PLATELET COUNT 174 K/uL (130-400); RED CELL DISTRIBUTION WIDTH CV 13.5 % (11.5-14.5); RED CELL DISTRIBUTION WIDTH SD 44.6 fL (36.4-46.3); WHITE BLOOD COUNT 7.45 K/uL (4.8-10.8)
[2017-10-11 12:02] LABS: PTT PATIENT 24.9 SECONDS (21.0-31.0)
[2017-10-11 12:04] LABS: CREATININE 1.12 mg/dl (0.60-1.40); POTASSIUM 4.2 mmol/L (3.5-5.1)
--- NOTE | 2017-10-13 21:57 | HISTORY & PHYSICAL EXAMINATION ---
DATE OF ADMISSION: 10/21/2017 CHIEF COMPLAINT: Bilateral knee pain and discomfort, right side greater than left. HISTORY OF PRESENT ILLNESS: The patient is a 67-year-old very active gentleman who I have been treating for years for multiple musculoskeletal issues. He underwent a left hip replacement back in 2007 and has done well from this. Over the past 10 years, he developed persistent progressive bilateral knee pain and discomfort. He has been treated over the past 10 years with intermittent injections which have become less successful over time. He has been through extensive therapy sessions on multiple occasions. This has become less successful. Pain is global in both knees. The right side is worse than the left. He reports swelling, cracking, popping and instability. He now like to consider a surgery PAST MEDICAL HISTORY: 1. Coronary artery disease, status post IN in 1993 and 1995. 2. Hypertension. 3. Elevated cholesterol. 4. Sleep apnea with CPAP machine. 5. Arthritis. 6. Gastroesophageal reflux disease. 7. Obesity with a BMI of 33. PAST SURGICAL HISTORY: Include: 1. Shoulder surgery. 2. Cardiac catheterization in 2015. 3. Left hip replacement done in October of 2007. ALLERGIES: None. CURRENT MEDICINES: Include: 1. Amlodipine 2. Wellbutrin. 3. Celebrex. 4. Plavix. 5. Lexapro. 6. Fluticasone nasal spray. 7. Glucosamine and chondroitin. 8. Hydrochlorothiazide. 9. Remicade. 10. Ketoconazole 11. Nitrostat. 12. Protonix. 13. Crestor. 14. Ambien. 15. Coenzyme Q. 16. Vitamin B12. 17. Vitamin B6. 18. Vitamin D. SOCIAL HISTORY: This is a 67-year-old male. He lives in [place]. He is . No significant smoking or alcohol intake. FAMILY HISTORY: Negative for heart disease, diabetes, or blood clots. REVIEW OF SYSTEMS: Negative for diabetes, neurologic problems, vascular problems or bleeding disorders. He is on Plavix. He does have a significant cardiac history. PHYSICAL EXAMINATION: GENERAL: Reveals a pleasant, healthy appearing, middle-aged male. Looks to be in good health. HEENT: Benign. NECK: Supple. No lymphadenopathy. LUNGS: Clear to auscultation. HEART: Has a regular rate and rhythm. ABDOMEN: Soft, nontender, nondistended. EXTREMITIES: Grossly neurovascularly intact except as follows: Examination of both knees reveals patient ambulates independently. Fairly neutral slight valgus alignment to his knees, clinically. He has got small knee effusions. He has got symmetric range of motion with near full extension and 120 degrees of flexion. He has got significant crepitance in the patellofemoral joint, both knees. No pain with hip motion on either side. IMAGING DATA: X-rays of both knees reveal moderately advanced tibiofemoral arthritis with advanced patellofemoral arthritis. Both knees are pretty similar. He has got complete loss of the patellofemoral joint space. He has got bone on bone disease. ASSESSMENT: A 67-year-old male status post left hip replacement with advanced bilateral knee degenerative joint disease, primarily in the patellofemoral compartment, but some tibial femoral disease as well. He has failed conservative treatment. PLAN: We talked about treatment options. The only real surgical option is knee replacement surgery. I did tell him that the results of knee replacement are less predictable for primarily patellofemoral arthritis but it is really his only option. He failed conservative treatment and he would like to proceed along this course. We will take him to the operating room and do a right total knee replacement. The risks and benefits of this procedure were explained to the patient including but not limited to DVT, PE, , infection, neurological injury, vascular injury, bleeding problem, pain, limited range of motion, stiffness, failure to relieve symptoms, incomplete relief of symptoms, need for further surgery in the future, fracture, leg length inequality, nerve palsy, and incomplete relief of symptoms. The patient understands and desires to proceed. Informed consent was obtained. [place]
[~2017-10-21] VITALS: Ht 182.9 cm; Wt 109.1 kg
[2017-10-21] VITALS (17 sets, daily range): BP systolic 84–166; BP diastolic 48–94; PULSE 49–68; TEMP 36.3–36.7; O2SAT 90–100
[~2017-10-21 06:04] MED LIST changes: +ACETAMINOPHEN 500 MG TAB PO SCH; +ANCEF - ALLERGY NOTED TO ORDERED MEDICATION SCH; +BUPIVACAINE LIPOSOME 266 MG, BUPIVACAINE/EPINEPHRINE INJ 50 ML, SODIUM CHLORIDE 0.9% PF... INFIL SCH; +CEFAZOLIN 2000MG IV PUSH 15 ML IV SCH; +FAMOTIDINE 20 MG TAB PO SCH; -FENTANYL CITRATE INJ 50 MCG/1 ML 2 ML VIAL ONE; +GABAPENTIN 300 MG CAP PO SCH; +LACTATED RINGER'S 1000ML 1,000 ML IV SCH; +LACTATED RINGER'S 1000ML 500 ML IV SCH; +LACTATED RINGER'S 1000ML IV SCH; -LIDOCAINE HCL 2% 2 ML VIAL (20MG/ML) ONE; -MIDAZOLAM HCL 1 MG/ML 2ML VIAL ONE; -PROPOFOL IV EMULSION 10 MG/ML 20 ML VIAL IV ONE; +SCOPOLAMINE 1.5 MG TDSY TD SCH
[2017-10-21] MEDS ORDERED: BUPIVACAINE 0.5 % 5 MG/1 ML PF 10ML VIAL ONE (06:41)
--- NOTE | 2017-10-21 06:51 | History & Physical Bridge Note ---
H&P Re-Evaluation Bridge Note: I have examined the patient, reviewed the History & Physical and in the interval since the performance of the History & Physical I have noted the following changes of clinical significance: No changes noted
[2017-10-21] MEDS ORDERED: BACITRACIN 50000 UNIT VIAL ONE (07:24)
[2017-10-21] MEDS ORDERED: BUPIVACAINE LIPOSOME 1/3% 266 MG/20 ML VIAL INFIL ONE (07:25)
[2017-10-21] MEDS ORDERED: BUPIVACAINE 0.25% 30 ML VIAL ONE (07:29)
[2017-10-21] MEDS ORDERED: MIDAZOLAM HCL 1 MG/ML 2ML VIAL ONE (07:36)
[2017-10-21] MEDS ORDERED: FENTANYL CITRATE INJ 50 MCG/1 ML 2 ML VIAL ONE ×2 (07:36→09:58)
[2017-10-21] MEDS ORDERED: SODIUM CHLORIDE 0.9% PF 50 ML VIAL ONE (07:36)
[2017-10-21] MEDS ORDERED: HYDROmorphone INJ 1 MG/ML SYR IV PRN (07:45)
[2017-10-21] MEDS ORDERED: ATROPINE SULFATE 0.1 MG/ML 5ML SYR IV PRN (07:45)
[2017-10-21] MEDS ORDERED: FENTANYL CITRATE INJ 50 MCG/1 ML 2 ML VIAL IV PRN (07:45)
[2017-10-21] MEDS ORDERED: ONDANSETRON INJ 2 MG/ML 2 ML VIAL IV PRN ×2 (07:45→10:15)
[2017-10-21] MEDS ORDERED: EpHEDrine SULFATE INJ 50 MG/ML AMP IV PRN (07:45)
[2017-10-21] MEDS ORDERED: ONDANSETRON INJ 2 MG/ML 2 ML VIAL ONE (09:26)
[2017-10-21] MEDS ORDERED: PROPOFOL IV EMULSION 10 MG/ML 20 ML VIAL IV ONE (09:26)
[2017-10-21] MEDS ORDERED: LIDOCAINE HCL 2% 2 ML VIAL (20MG/ML) ONE (09:26)
--- NOTE | 2017-10-21 10:08 | [facility] Post Operative Brief Note ---
Immediate Operative Summary Operative Date Oct 21, 2017. Pre-Operative Diagnosis Degenerative Joint Disease Right Knee Post-Operative Diagnosis Degenerative Joint Disease Right Knee Procedure(s) Performed Right Total Knee Arthroplasty Surgeon Jeffrey Astronaut Mission Specialist Surgeon(s) Olivia Estimated Blood Loss 50 ML Findings Consistent with Post-Op Diagnosis Fluids (cc crystalloids) 1600 cc Specimens Bone/Tissue Right Knee Drains None Anesthesia Type MAC Spinal Regional Complication(s) none Disposition Accompanied Pt To Recover: no Disposition: Recovery Room / PACU
[2017-10-21] MEDS ORDERED: HYDROmorphone INJ 0.5 MG/0.5 ML SYR IV PRN (10:15)
[2017-10-21] MEDS ORDERED: CEFAZOLIN IV 2,000 MG in DEXTROSE 5% 50ML 50 ML IV SCH (10:15)
[2017-10-21] MEDS ORDERED: DiphenhydrAMINE HCL 50 MG/ML VIAL IV PRN (10:15)
[2017-10-21] MEDS ORDERED: TAMSULOSIN HCL 0.4 MG CAP PO PRN (10:15)
[2017-10-21] MEDS ORDERED: SILVER SULFADIAZINE 1% CR 50 GM JAR EXT PRN (10:15)
[2017-10-21] MEDS ORDERED: ZOLPIDEM TARTRATE 5 MG TAB PO PRN (10:15)
[2017-10-21] MEDS ORDERED: BISACODYL 10 MG SUPP PR PRN (10:15)
[2017-10-21] MEDS ORDERED: ALUMINUM/MAGNESIUM/SIMETH (MAALOX MAX) 30 ML UDC PO PRN (10:15)
[2017-10-21] MEDS ORDERED: METOCLOPRAMIDE HCL INJ 5 MG/ML 2 ML VIAL IV PRN (10:15)
[2017-10-21] MEDS ORDERED: NITROGLYCERIN 0.4 MG SL PER TAB CHARGE UT PRN (10:15)
[2017-10-21] MEDS ORDERED: MAGNESIUM HYDROXIDE SUSP 30 ML UDC PO PRN (10:15)
[2017-10-21] MEDS: D5W AND 1/2NSS + 20MEQ KCL 1,000 ML IV SCH ×2 (11:50→19:49)
[2017-10-21] MEDS: FERROUS GLUCONATE 324 MG TAB PO SCH ×2 (12:39→18:09)
[2017-10-21] MEDS: KETOROLAC TROMETHAMINE 15 MG/ML VIAL IV. SCH ×2 (12:40→18:10)
--- NOTE | 2017-10-21 13:41 | DIAGNOSTIC IMAGING REPORT ---
RIGHT KNEE 2 VIEWS History: Right total knee arthroplasty. Degenerative arthritis. Postop. FINDINGS: The patient is status post a right total knee arthroplasty. The hardware is intact. No fracture or dislocation. Skin kelsie are in place. IMPRESSION: Right total knee arthroplasty. No evidence for hardware complication. Electronically signed by: Robert Gallo M.D. 10/21/2017 1:40 PM Dictated Date/Time: 10/21/2017 1:39 PM
[2017-10-21] MEDS: ACETAMINOPHEN 500 MG TAB PO SCH ×2 (13:52→21:39)
--- NOTE | 2017-10-21 14:53 | PROGRESS NOTE ---
DATE: 10/21/2017 SUBJECTIVE: A 67-year-old gentleman postop from a right knee replacement. I have just done his postop check and was about to dictate when I was called that he had a code blue. The patient apparently had to go to the bathroom and was in the bathroom bearing down trying to have a bowel movement when he appeared to lose consciousness. The nurses tried to get him back in bed and he was kind of going in and out of consciousness. They laid him in bed and when I arrived, he was in Trendelenburg position. He is awake, alert and oriented. He denies any chest pain or shortness of breath. He does not have much in the way of knee pain currently. OBJECTIVE: VITAL SIGNS: Temperature 36.3. Pulse is 49. Blood pressure initially was low, but now back to 114/70. Pulse ox 96. PHYSICAL EXAMINATION: GENERAL: Reveals a pleasant male. He was in Trendelenburg position and we eventually put him flat and then sat him up. LUNGS: Clear to auscultation. HEART: Regular rate and rhythm. ABDOMEN: Soft, nontender, nondistended. EXTREMITIES: Grossly neurovascularly intact except as follows. Examination of the right leg reveals the leg to be well aligned. Dressing is clean, dry and intact. I can slightly flex and extend his toes. X-RAYS: X-ray of the right knee from recovery room reviewed. It shows a right cemented posterior stabilized total knee arthroplasty. Components looked to be in good position. No signs of problems. ASSESSMENT: A 67-year-old gentleman postop from right knee replacement, doing reasonably well. He does have a significant cardiac history. This appears to be clearly a vasovagal episode. He was hypotensive, but now, his blood pressure is back. He is slightly bradycardic, which he has been at baseline. He has had no cardiac symptoms and I do not think we need to do any further lab testing or workup unless other symptoms develop. PLAN: 1. DVT prophylaxis including thigh-high TEDs, SCDs, and will put him back on his Plavix and his aspirin starting 24 hours postop. 2. PT/OT. Weight bear as tolerated. Right total knee protocol. 3. Pain control. Doing reasonably well with current pain regimen. We are going to avoid excessive narcotics to avoid side effects. 4. IV antibiotics x24 hours. 5. He has a cardiac history. Dr. Galvan has been consulted, his machine feeder floorperson to follow along and manage cardiac issues. 6. Disposition: Plan to be discharged home with some home health once adequately recovered.
[2017-10-21] MEDS: CHECK SCOPOLAMINE PATCH PLACEMENT SCH (16:00)
[2017-10-21] MEDS: CEFAZOLIN IV 2,000 MG in SYRINGE 0 ML IV SCH (17:09)
[2017-10-21] MEDS ORDERED: NURSING VERBAL MED ORDER ONE (17:15)
--- NOTE | 2017-10-21 17:49 | Anesthesiology Progress Note ---
Anesthesia Post Op Note Date & Time Oct 21, 2017 at 17:48 Vital Signs Pain Intensity: 0.0 Vital Signs Past 12 Hours Date Time Temp Pulse Resp B/P (MAP) Pulse Ox O2 Delivery O2 Flow Rate FiO2 10/21/17 15:30 36.3 52 18 108/58 (75) 98 Nasal Cannula 4.0 10/21/17 14:54 53 108/71 (83) 97 Nasal Cannula 4.0 10/21/17 14:43 51 93/66 (75) 98 Nasal Cannula 4.0 10/21/17 14:38 51 91/63 (72) 96 Nasal Cannula 4.0 10/21/17 14:36 49 114/70 (85) 96 Nasal Cannula 4.0 10/21/17 14:34 51 84/48 (60) 99 Nasal Cannula 4.0 10/21/17 13:49 36.3 56 16 141/88 (105) 96 2.0 10/21/17 12:50 55 16 138/84 (102) 94 Nasal Cannula 2.0 10/21/17 11:50 59 16 146/84 (104) 97 2.0 10/21/17 11:21 36.3 59 16 142/78 (99) 93 Nasal Cannula 2.0 10/21/17 10:50 94 Nasal Cannula 2.0 10/21/17 10:50 94 Nasal Cannula 2.0 10/21/17 10:50 36.7 64 16 144/84 (104) 94 Nasal Cannula 2.0 10/21/17 10:40 36.5 61 14 161/93 94 Nasal Cannula 2 10/21/17 10:30 57 13 159/89 95 Nasal Cannula 2 10/21/17 10:20 65 10 161/91 98 Nasal Cannula 2 10/21/17 10:13 36.2 63 14 169/98 96 Nasal Cannula 2 10/21/17 07:05 36.5 59 18 166/94 95 Room Air Notes Mental Status: alert / awake / arousable, participated in evaluation Pt Amnestic to Procedure: Yes Nausea / Vomiting: adequately controlled Pain: adequately controlled Airway Patency, RR, SpO2: stable & adequate BP & HR: stable & adequate Hydration State: stable & adequate Neuraxial Anesthesia: was administered, sensory block is resolving Anesthetic Complications: no major complications apparent
[2017-10-21] MEDS: TAPENTADOL ER 50 MG TABCR PO SCH (21:00)
[2017-10-21] MEDS ORDERED: NON-FORMULARY MEDICATION ([Coq10] 1 TAB) PO SCH (21:00)
[2017-10-21] MEDS: ZOLPIDEM TARTRATE 10 MG TAB PO SCH (21:00)
--- NOTE | 2017-10-21 21:01 | OPERATIVE REPORT ---
DATE OF OPERATION: 10/21/2017 SURGEON: Chun Murphy MD. GYMNASTIC COACH: RAEGAN Fernando. PREOPERATIVE DIAGNOSIS: Right knee degenerative joint disease. POSTOPERATIVE DIAGNOSIS: Same. PROCEDURE PERFORMED: Right cemented posterior stabilized total knee arthroplasty. COMPLICATIONS: None. ESTIMATED BLOOD LOSS: 50 mL. FLUID REPLACEMENT: 1600 mL crystalloid fluid replacement. TOURNIQUET TIME: 56 minutes at 300 mmHg. ANESTHESIA: Spinal with adductor canal block. DRAINS: None. SPECIMENS: Right knee sent for pathology. OPERATIVE INDICATIONS: The patient is a 67-year-old male who has had a long history of multiple joint aches and pains. He is well known to me from previous left hip replacement we did about 10 years ago. Over the past 10 years, I have been managing his bilateral knee arthritis with oral medicines, therapy and injections. This has become less successful over time. He had some moderate tibiofemoral arthritis but advanced patellofemoral arthritis. We discussed treatment options and he strongly desiring total knee arthroplasty. He went in this fully knowing the results of the total knee arthroplasty for patellofemoral arthritis are less predictable than tibial femoral arthritis. OPERATIVE FINDINGS: Operative findings were advanced extensive grade 4 changes of the trochlea as well as the patella. He had focal grade 4 area of the lateral femoral condyle on the weightbearing surface in the central aspect about the size of a quarter. The medial compartment was fairly well preserved. He had moderate size joint effusion. OPERATIVE IMPLANTS: Operative implants consisted of: 1. Biomet size 67.5 right posterior stabilized femoral component. 2. A Biomet size 75 tibial tray. 3. A 12 mm posterior stabilized polyethylene insert. 4. A 31 x 8 all poly patella. OPERATIVE PROCEDURE: The patient was taken to the operating room, identified and placed on the operating table in supine position. All contact were appropriately padded. IV antibiotics were provided by anesthesia team. A spinal anesthetic and adductor canal block had been provided in the holding area. Blue catheter was placed in sterile fashion. Right thigh tourniquet was then placed and the right lower extremity was then prepped and draped in usual sterile fashion. The right leg was elevated and exsanguinated with Esmarch and tourniquet placed at 300 mmHg. An anterior approach of the right knee was then performed through a longitudinal incision centered over the patella. Sharp dissection was carried through the subcutaneous tissue down to the level of the extensor mechanism. A medial parapatellar arthrotomy incision was made. Some subperiosteal dissection was carried out medially. The fat pad resected from beneath the patellar tendon. Lateral patellofemoral ligament was released. The patella was everted and knee was flexed. The osteophytes were taken off the distal femur. The ACL and PCL were then released from the distal femur and the tibia subluxated anteriorly. The external tibial alignment jig was then placed in the anterior face of the tibia and adjusted 12 mm medially. Proximal tibial cut was made to remove about 3-4 mm of bone from the medial side. The tibia sized to a size 75. Some osteophytes were taken off medial and posteromedially. Attention was then drawn to the femur. The distal femur was entered with a sharp drill bit. Intramedullary canal was suctioned. A right 5 degree valgus cutting guide was placed. Distal femoral cutting block was pinned in place. A distal femoral cut was made to take an additional 3 mm of bone off distal femur. I then brought the knee out in extension. I did do a little bit of pie crusting of the IT band to equalize the extension gap. The knee was then flexed. The femur was then sized to a size 67.5. We did downsize this slightly. The AP cutting block was pinned parallel to the epicondylar axis, which was 4 degrees of external rotation. The anterior cut, anterior chamfer, posterior cut, posterior chamfer cuts were made. Box cutting guide was placed and adjusted slightly lateral to maximize patellar tracking. The box cut was made. The knee was flexed. The remnants of the medial and lateral menisci were excised. The osteophytes were taken off the posterior aspect of the femur. I did release the popliteus in order to equalize the flexion gap. Great care was taken to protect the peroneal nerve at all times. I then irrigated the wound extensively. A trial femoral component was placed. Tibial tray was pinned in maximum external rotation and drill and stem punch were used to create defect in proximal tibia for the tibial tray. The knee was then trialed and 12 mm insert fit most appropriately. He had just a little bit of residual laxity on the medial side in flexion but we elected to accept this. Attention was then drawn to patella. Patella was cleaned of all soft tissues. Patella thickness measured 22 mm in thickness was cut down to 13. I did downsize this slightly to optimize patellar tracking. A 31 component was selected. The lug holes for the 31 patella were then created. The lateral osteophyte was removed. Patella button was placed. Knee was taken through range of motion and patella tracked very nicely with no thumbs test. Once again, I did all I could to optimize the patellar tracking by appropriately rotating the femoral component, lateralizing the femoral component, selecting a slightly smaller patella and medializing it. Patella tracked nicely. Attention was then drawn toward placement of permanent components. All trial components were removed. Bone plug was placed and distal femur to limit blood loss. A double batch of Palacos G cement was mixed. A right size 67.5 posterior stabilized femoral component, size 75 tibial tray, a 12 mm posterior stabilized polyethylene insert, and a 31 x 8 all poly patella then cemented in place. Knee was brought into full extension until cement hardened. Final cement check was then performed. Pericapsular tissues were injected with a total of 100 mL of combination of 20 mL of Exparel, 30 mL of normal saline, 50 mL of 0.25% Marcaine with epinephrine. The patient did not get any tranexamic acid due to his cardiac history. The wound was irrigated. I did inject locally with 100 mL of a combination of 20 mL of Exparel, 30 mL of normal saline, 50 mL of 0.25% Marcaine with epinephrine. The tourniquet was then let down for a tourniquet time of 56 minutes. Hemostasis was assured with use of electrocautery. Extensor mechanism was then closed with combination of #1 PDS suture and #1 Vicryl suture in [id number] fashion. Extensor mechanism was checked and found to be intact. The subcutaneous tissues were then closed with #2 Dexon suture in a buried interrupted fashion and skin was closed with skin kelsie. Leg was then cleaned, dried and a sterile dressing of Xeroform, 4 x 4, sterile cast padding and Demarco bandage were applied. The patient was then transferred to the recovery room in stable condition. The patient tolerated the procedure well with no complication. All needle and sponge counts were correct at the end of the operation. I attest to the content of the Intraoperative Record and any orders documented therein. Any exception s are noted below.
[2017-10-21] MEDS: ROSUVASTATIN CALCIUM 20 MG TAB PO SCH (21:38)
[2017-10-21] MEDS: PANTOprazole SOD 40 MG TAB PO SCH (21:38)
[2017-10-21] MEDS: DOCUSATE SODIUM 100 MG CAP PO SCH (21:39)
[2017-10-21] MEDS: SENNA 8.6 MG TAB PO SCH (21:40)
--- NOTE | 2017-10-21 22:43 | CARDIOLOGY CONSULTATION ---
DATE OF CONSULTATION: 10/21/2017 PERTINENT HISTORY: Mr. Hernandez is a 67-year-old white male who underwent right knee replacement surgery with Dr. Murphy earlier today. This consultation was ordered to assist in his postoperative management. Of note, patient typically follows with Dr. Galvan in the outpatient setting. The patient underwent a surgical procedure earlier today. He was sent to a room on and was stable. However, he sat up at the side of the bed and noticed "excruciating" pain in the right knee. He eventually was assisted to the bathroom and was straining to have a bowel movement. He then became unresponsive, and he was eventually moved to the bed by the staff. The patient's heart rate and blood pressure improved. There was mention of diaphoresis with the event. Of note, this has happened on 3 other occasions, all associated with surgical procedures. The patient does carry history of coronary artery disease. He suffered myocardial infarctions in 1992 and 1994. He eventually underwent a single vessel bypass in August 2007 which included an PALOMINO to the LAD. He had a residual 25% proximal right coronary artery stenosis. The patient has done well from a cardiac perspective since that time. The patient does not experience exertional angina pectoris or limiting dyspnea. He further denies PND, orthopnea, palpitations, lower extremity edema, and claudication. Currently, patient is resting comfortably in bed and without complaints. His is at the bedside. PAST MEDICAL HISTORY: 1. Coronary artery disease - see above. 2. CABG x1 - August 2007 - see above. 3. Urvd-ex-iqkwhqft aortic insufficiency. 4. Hypertension. 5. Hypercholesterolemia. 6. GERD. 7. Ulcerative colitis. 8. TIA - June 2014. 9. Obstructive sleep apnea. 10. Left total hip replacement - 2007. MEDICATIONS: 1. Lotensin 40 mg per day. 2. Norvasc 10 mg per day. 3. Hydrochlorothiazide 25 mg per day. 4. Plavix 75 mg per day. 5. Crestor 40 mg at bedtime. 6. Protonix 80 mg per day. 7. Colace 100 mg b.i.d. 8. Senokot 17.2 mg daily. 9. Flonase 2 sprays per day. 10. Lexapro 20 mg per day. 11. Wellbutrin 300 mg per day. 12. Multivitamin 1 daily. ALLERGIES: AMOXICILLIN. SOCIAL HISTORY: The patient is and lives with his . Does not use tobacco. Alcohol use is rare. FAMILY HISTORY: Father suffered a myocardial infarction at the age of 53. REVIEW OF SYSTEMS: A 10-point review of systems was negative except for that described above. PHYSICAL EXAMINATION: GENERAL: This is a well-developed, well-nourished white male, lying supine in bed without complaints. VITAL SIGNS: Blood pressure is 108/58 with a regular pulse of 55. Respiratory rate is 18. The patient is afebrile at 36.3 degrees Celsius. Saturation 98% on 4 liters nasal cannula. HEENT: Negative. NECK: Supple with full carotid upstrokes. No carotid bruits. Jugular venous pressure is flat at 90 degrees. There is no thyromegaly. CARDIOVASCULAR: Reveals a regular rhythm with normal S1, S2. Heart sounds are distant. No obvious murmurs. LUNGS: Clear without rales, rhonchi, or wheeze. ABDOMEN: Soft, nontender without bruits. EXTREMITIES: Reveal intact radial artery pulses bilateral. No left-sided pretibial edema. Right lower extremity is dressed. LABORATORY DATA: Preoperative CBC notes hemoglobin 15.1, hematocrit 42.6, white count 7.45, platelet count 174,000. Electrolytes note a sodium of 138, potassium 4.2, chloride 104, bicarbonate 20, BUN 21, creatinine 1.1, glucose 160. Echocardiogram performed in May 2014 noted normal left ventricular ejection fraction of 50% with an anterior wall motion abnormality. There was [id number] aortic insufficiency. IMPRESSION: Mr. Hernandez underwent knee replacement surgery without major event. He did have an episode of vasovagal syncope while straining on the toilet. He does carry a history of similar episodes. No further cardiac evaluation necessary at this time. PLAN: 1. Continue usual outpatient medications. 2. Follow laboratories closely as you are. 3. Further recommendations depending on his clinical course.
[2017-10-22] MEDS: KETOROLAC TROMETHAMINE 15 MG/ML VIAL IV. SCH ×2 (00:24→05:36)
[2017-10-22] MEDS: CEFAZOLIN IV 2,000 MG in SYRINGE 0 ML IV SCH (00:24)
[2017-10-22] MEDS: D5W AND 1/2NSS + 20MEQ KCL 1,000 ML IV SCH (03:49)
[2017-10-22 04:46] VITALS: BP 116/73; PULSE 76; TEMP 36.5; O2SAT 95
[2017-10-22] MEDS: ACETAMINOPHEN 500 MG TAB PO SCH ×3 (05:36→20:57)
[2017-10-22 07:19] LABS: HEMATOCRIT 33.7 % (42-52); HEMOGLOBIN 11.6 g/dL (14.0-18.0); MEAN CELL VOLUME 90.3 fL (80-100); MEAN CORPUSCULAR HEMOGLOBIN 31.1 pg (25-34); MEAN CORPUSCULAR HGB CONC 34.4 g/dl (32-36); PLATELET COUNT 144 K/uL (130-400); RED CELL DISTRIBUTION WIDTH CV 13.6 % (11.5-14.5); WHITE BLOOD COUNT 9.08 K/uL (4.8-10.8)
[2017-10-22 07:29] VITALS: BP 107/69; PULSE 61; TEMP 36.8; O2SAT 97
[2017-10-22 07:49] LABS: CALCIUM 7.7 mg/dl (8.5-10.1); CREATININE 1.2 mg/dl (0.60-1.40); POTASSIUM 3.8 mmol/L (3.5-5.1)
[2017-10-22] MEDS: CHECK SCOPOLAMINE PATCH PLACEMENT SCH ×3 (08:00→16:12)
--- NOTE | 2017-10-22 08:23 | PROGRESS NOTE ---
DATE: 10/22/2017 SUBJECTIVE: A 67-year-old gentleman postop day 1 from right knee replacement. He is doing well. Really not having much pain. No further hypotensive or vasovagal episodes. No chest pain or shortness of breath. Not feeling dizzy or lightheaded. OBJECTIVE: VITAL SIGNS: Temperature 36.8. Vital signs stable. GENERAL: Reveals a pleasant, middle-aged male. He is sitting up in bed, looks comfortable. He is awake, alert and oriented. EXTREMITIES: Examination of the right leg reveals the dressing to be clean, dry, and intact. He can do a straight leg raise. He can dorsiflex and plantarflex his foot appropriately. He is neurologically intact. LABORATORY DATA: Hemoglobin 11.6, hematocrit 33.7. Electrolytes are stable. ASSESSMENT: A 67-year-old gentleman postop day 1 from right knee replacement, doing pretty well. He had a vasovagal episode yesterday but has recovered from this. No signs of any other issues. No signs of cardiac problems. His pain is controlled. He is neurologically intact. PLAN: 1. DVT prophylaxis including thigh high TEDs, SCDs. We will start him back on his Plavix today. 2. PT, OT. Weight bear as tolerated. Right total knee protocol. 3. Pain control, doing well with current pain regimen. 4. Cardiac history. It was consulted with Dr. Galvan to follow along as needed. 5. Disposition: He is open to be discharged home with home health once adequately recovered.
[2017-10-22] MEDS ORDERED: PANTOprazole SOD 40 MG TAB PO SCH (09:00)
[2017-10-22] MEDS ORDERED: AMLODIPINE BESYLATE BENAZEPRIL PO SCH (09:00)
[2017-10-22] MEDS: TAPENTADOL ER 50 MG TABCR PO SCH ×2 (09:00→20:50)
[2017-10-22] MEDS: FLUTICASONE PROPIONATE NA SPR 16 GM BTL NAE SCH (09:00)
[2017-10-22] MEDS: FERROUS GLUCONATE 324 MG TAB PO SCH ×3 (09:26→17:39)
[2017-10-22] MEDS: AMLODIPINE BESYLATE 5 MG TAB PO SCH (09:26)
[2017-10-22] MEDS: BENAZEPRIL HCL 10 MG TAB PO SCH (09:26)
[2017-10-22] MEDS: HYDROCHLOROTHIAZIDE 25 MG TAB PO SCH (09:26)
[2017-10-22] MEDS: CHOLECALCIFEROL 1000 INTER.UNIT TAB PO SCH (09:27)
[2017-10-22] MEDS: BuPROPion XL 300 MG TABCR PO SCH (09:27)
[2017-10-22] MEDS: MULTIVITAMIN TAB PO SCH (09:27)
[2017-10-22] MEDS: PYRIDOXINE HCL 50 MG TAB PO SCH (09:27)
[2017-10-22] MEDS: DOCUSATE SODIUM 100 MG CAP PO SCH ×2 (09:27→20:54)
[2017-10-22] MEDS: ESCITALOPRAM OXALATE 20 MG TAB PO SCH (09:27)
[2017-10-22] MEDS: ASPIRIN 81 MG ECTAB PO SCH (09:56)
[2017-10-22] MEDS: CLOPIDOGREL BISULFATE 75 MG TAB PO SCH (10:56)
[2017-10-22 15:26] VITALS: BP 115/70; PULSE 69; TEMP 38.1; O2SAT 95
[2017-10-22 17:15] VITALS: TEMP 37.3
[2017-10-22] MEDS: OXYCODONE HCL IR 5 MG TAB (IMMEDIATE RELEASE) PO PRN (17:41)
[2017-10-22] MEDS: ZOLPIDEM TARTRATE 10 MG TAB PO SCH (20:49)
[2017-10-22] MEDS: ROSUVASTATIN CALCIUM 20 MG TAB PO SCH (20:55)
[2017-10-22] MEDS: PANTOprazole SOD 40 MG TAB PO SCH (20:55)
[2017-10-22] MEDS: SENNA 8.6 MG TAB PO SCH (20:56)
[2017-10-22] MEDS ORDERED: RXC5 PO (21:12)
[2017-10-22] MEDS ORDERED: ACET-24 PO (21:12)
[2017-10-22] MEDS ORDERED: ASPEC81 PO (21:12)
--- NOTE | 2017-10-22 21:14 | Discharge Instructions ---
Discharge Instructions Date of Service Oct 22, 2017. Admission Reason for Admission: Degenerative Joint Disease Knee Discharge Discharge Diagnosis / Problem: Right Knee REplacement Discharge Goals Goal(s): Decrease discomfort, Improve function, Increase independence, Improve disease control, Therapeutic intervention Activity Recommendations Activity Limitations: per Instructions/Follow-up section Weightbearing Status: Right weightbearing . Current Hospital Diet Patient's current hospital diet: Regular Diet Discharge Diet Recommended Diet: Regular Diet Procedures Procedures Performed: Right Total Knee Arthroplasty Pending Studies Studies pending at discharge: no Medical Emergencies . Who to Call and When: Medical Emergencies: If at any time you feel your situation is an emergency, please call 911 immediately. . Non-Emergent Contact Non-Emergency issues call your: Surgeon . "Provider Documentation" section prepared by Chun Murphy. .
[2017-10-22 23:01] VITALS: BP 138/72; PULSE 70; TEMP 36.8; O2SAT 98
[2017-10-23] MEDS: ACETAMINOPHEN 500 MG TAB PO SCH (05:55)
[2017-10-23 07:12] VITALS: BP 123/72; PULSE 69; TEMP 37; O2SAT 94
[2017-10-23] MEDS: CHECK SCOPOLAMINE PATCH PLACEMENT SCH ×2 (08:00)
[2017-10-23 08:19] VITALS: BP 123/72; PULSE 69; TEMP 37; O2SAT 94
[2017-10-23] MEDS: ESCITALOPRAM OXALATE 20 MG TAB PO SCH (08:38)
[2017-10-23] MEDS: BuPROPion XL 300 MG TABCR PO SCH (08:38)
[2017-10-23] MEDS: FERROUS GLUCONATE 324 MG TAB PO SCH ×2 (08:38→12:30)
[2017-10-23] MEDS: CHOLECALCIFEROL 1000 INTER.UNIT TAB PO SCH (08:38)
[2017-10-23] MEDS: BENAZEPRIL HCL 10 MG TAB PO SCH (08:38)
[2017-10-23] MEDS: CLOPIDOGREL BISULFATE 75 MG TAB PO SCH (08:38)
[2017-10-23] MEDS: MULTIVITAMIN TAB PO SCH (08:38)
[2017-10-23] MEDS: DOCUSATE SODIUM 100 MG CAP PO SCH (08:38)
[2017-10-23] MEDS: PYRIDOXINE HCL 50 MG TAB PO SCH (08:39)
[2017-10-23] MEDS: AMLODIPINE BESYLATE 5 MG TAB PO SCH (08:39)
[2017-10-23] MEDS: HYDROCHLOROTHIAZIDE 25 MG TAB PO SCH (08:39)
[2017-10-23] MEDS: ASPIRIN 81 MG ECTAB PO SCH (08:39)
[2017-10-23] MEDS: FLUTICASONE PROPIONATE NA SPR 16 GM BTL NAE SCH (08:40)
[2017-10-23] MEDS: OXYCODONE HCL IR 5 MG TAB (IMMEDIATE RELEASE) PO PRN (08:44)
--- NOTE | 2017-10-23 08:44 | PROGRESS NOTE ---
DATE: 10/23/2017 SUBJECTIVE: A 67-year-old gentleman postop day #2 from a right knee replacement. He is doing pretty well. No particular pain at this point only with walking and exercise. No further vasovagal episodes. Denies any chest pain or shortness of breath. Not feeling dizzy or lightheaded. OBJECTIVE: VITAL SIGNS: Temperature 37.0. Vital signs stable. GENERAL: Reveals a pleasant, middle-aged male. He is sitting up in bed, looks pretty comfortable. EXTREMITIES: Examination of the right leg reveals the dressing to be clean, dry and intact. Calf is soft and supple. He can dorsiflex and plantarflex his foot appropriately. He is neurologically intact. ASSESSMENT: A 67-year-old gentleman postop day #2 from right knee replacement, doing well. His pain is controlled. Cardiac tejeda, he has been stable. No further vasovagal episodes. PLAN: 1. DVT prophylaxis including thigh-high TEDs, SCDs, and back on his Plavix and on a baby aspirin once a day. 2. PT/OT. Weightbear as tolerated. Right total knee protocol. 3. Pain control. Doing pretty well with current pain regimen. 4. Disposition: Plan to discharge to home with some home health later today.
[2017-10-23] MEDS: TAPENTADOL ER 50 MG TABCR PO SCH (09:00)
== END 2017-10-23 13:11 | disposition home health service (06) | DRG 470 ==
LOC: C.ACU 06:04 → C.3E 06:33 → ENRESERV 10:28
PROVIDERS: ADMIT Orthopaedic Surgery Sports Medicine; ATTEND Orthopaedic Surgery Sports Medicine
PROC: 0SRC0J9 Replacement of Right Knee Joint with Synthetic Substitute, Cemented, Open Approach (ICD-10-PCS; principal; 2017-10-21 09:00)
DX: M17.0 Bilateral primary osteoarthritis of knee (principal); K51.90 Ulcerative colitis, unspecified, without complications; R55 Syncope and collapse; I25.10 Atherosclerotic heart disease of native coronary artery without angina pectoris; I25.2 Old myocardial infarction; I11.9 Hypertensive heart disease without heart failure; E78.00 Pure hypercholesterolemia, unspecified; K21.9 Gastro-esophageal reflux disease without esophagitis; G47.33 Obstructive sleep apnea (adult) (pediatric); E66.9 Obesity, unspecified; Z79.899 Other long term (current) drug therapy; Z79.02 Long term (current) use of antithrombotics/antiplatelets; Z96.642 Presence of left artificial hip joint; Z68.33 Body mass index [BMI] 33.0-33.9, adult; Z86.73 Personal history of transient ischemic attack (TIA), and cerebral infarction without residual deficits; Z95.1 Presence of aortocoronary bypass graft; Z88.0 Allergy status to penicillin; Z82.49 Family history of ischemic heart disease and other diseases of the circulatory system

== ENCOUNTER → 2018-03-28 | Outpatient (CLI) | payer OTHER ==
[~2018-03-28] MED LIST changes: +ACET-24 PO; -ACETAMINOPHEN 500 MG TAB PO SCH; -ANCEF - ALLERGY NOTED TO ORDERED MEDICATION SCH; +ASPI-320 PO; -BUPIVACAINE LIPOSOME 266 MG, BUPIVACAINE/EPINEPHRINE INJ 50 ML, SODIUM CHLORIDE 0.9% PF... INFIL SCH; -CEFAZOLIN 2000MG IV PUSH 15 ML IV SCH; -FAMOTIDINE 20 MG TAB PO SCH; -GABAPENTIN 300 MG CAP PO SCH; -LACTATED RINGER'S 1000ML 1,000 ML IV SCH; -LACTATED RINGER'S 1000ML 500 ML IV SCH; -LACTATED RINGER'S 1000ML IV SCH; +RXC5 PO; -SCOPOLAMINE 1.5 MG TDSY TD SCH
[2018-03-28 15:57] VITALS: BP 131/76; PULSE 73; Ht 182.9 cm
== END | disposition home or self-care (01) ==
LOC: C.NEUR 14:16
PROVIDERS: ATTEND Internal Medicine Pulmonary Disease
DX: G47.33 Obstructive sleep apnea (adult) (pediatric) (principal)

== ENCOUNTER 2018-08-18 06:27 | Inpatient (IN) ==
--- NOTE | 2018-07-28 13:35 | Anesthesiology Consultation ---
Date of Service July 28, 2018 Assessment & Plan (1) Encounter for pre-operative examination: Plan: - Patient to hold Plavix 7 days prior to surgery per surgeon and cardio instructions. - Cardio= 04/19/18= "able to climb a flight of stairs with some SOB." dyspnea felt multifactorial. Aware of upcoming knee surgery- at this time, only recommendation is to add aldactone to current regimen. T/C long-acting nitro/ holter monitoring in the future. Patient denies any new cardiopulmonary complaints at PAT visit on 07/28/18. Chart Review Chart Review: Acceptable Risk for Surgery (PENDING EVALUATION OF CLINICAL STATUS AM DOS) and Patient seen in Pre Admission Testing Teaching & Discussion Pre-Anesthesia Teaching/Discussion Notes: Instructed NPO after midnight before surgery,except medications with 15 cc of water. Medication instructions provided according to the [facility] guidelines. History Surgery Operation Date: 08/18/18 07:00 Proposed Procedures p Left Total Knee Replacement - Chun Murphy MD Height/Weight Height: 6 ft Weight: 111.5 kg Allergies Allergy/AdvReac Type Severity Reaction Status Date / Time amoxicillin Allergy Severe face Verified 07/20/18 10:26 swelling Medications Home Medications Medication Instructions Recorded Confirmed Last Taken bupropion HCl [Wellbutrin XL] 300 mg PO QAM 05/10/18 07/20/18 Unknown celecoxib [Celebrex] 200 mg PO DAILY 05/10/18 07/20/18 Unknown clopidogrel [Plavix] 75 mg PO DAILY 05/10/18 07/20/18 Unknown hydrochlorothiazide 25 mg PO DAILY 05/10/18 07/20/18 Unknown infliximab 0 mg IV Q8WK 05/10/18 07/20/18 05/09/18 nitroglycerin [Nitrostat] 1 tab SUBLINGUAL DIRECTED PRN 05/10/18 07/20/18 Unknown pantoprazole [Protonix] 80 mg PO HS 05/10/18 07/20/18 Unknown rosuvastatin [Crestor] 20 mg PO DAILY 05/10/18 07/28/18 Unknown amlodipine-benazepril [Lotrel] 1 cap PO DAILY 07/20/18 07/20/18 Unknown trazodone 50 mg PO DAILY 07/20/18 07/20/18 Unknown Aldactone 1 tab PO DAILY 07/28/18 07/28/18 Unknown Chondroitin Sulfate 07/28/18 Unknown CoQ-10 07/28/18 Unknown Vitamin B-12 07/28/18 Unknown Vitamin B-6 07/28/18 Unknown ketoconazole 07/28/18 Unknown ofloxacin 07/28/18 Unknown spironolactone [Aldactone] 25 mg PO DAILY 07/28/18 07/28/18 Unknown venlafaxine 187.5 mg PO DAILY 07/28/18 07/28/18 Unknown Past Medical History Medical History HTN (hypertension) Anxiety Bifascicular block NO SIGNIFICANT EKG CHANGES COMPARED TO 11/2016 PER CARDIO CAD (coronary artery disease) S/P CABG X 1 (2007)= PALOMINO-LAD Carotid artery stenosis Depression GERD (gastroesophageal reflux disease) CONTROLLED Gout Hearing deficit HEARING AIDS History of TIA (transient ischemic attack) TIA (2013) Hx of myocardial infarction 1994, 1996 Neuropathy FEET Obesity Osteoarthritis Sleep apnea CPAP Ulcerative colitis STABLE ON INFLIXIMAB Q8 WEEKS Past Surgical History Surgical History Hx of CABG CABG X 1 (2007)= PALOMINO-LAD History of cardiac cath 2015= NO STENTS History of hip replacement LEFT Hx of colonoscopy Hx of shoulder surgery RIGHT Hx of total knee replacement RIGHT TKA= 10/21/17= SAB X 2 ATTEMPTS + PNB AT [facility] Past Anesthesia History No Hx of Anesthesia Complications and No Family Hx of Anesthesia Complications History of PONV No Motion Sickness Screening History of Motion Sickness: No Social History Smoking Status: Never smoker Do You Dip or Chew Tobacco: No Hx Alcohol Use: No Hx Substance Use: No Exercise / Class Metabolic Activity III < 4 Walking/Shop/Light housework Review of Systems Patient reports knee pain. Reflux controlled. Patient denies chest pain, shortness of breath, cough, wheezing, palpitations. Physical Exam Vital Signs VITALS BP 137/83 P 66 TEMP 98.0 SP02 96%RA RESP 14 Full neck and c-spine range of motion. Full TMJ range of motion. TMD 3 finger breaths Mallampati Score 3 Dentition: intact, several crowns "all over" Lungs: clear throughout to auscultation Cardiac: regular rate and rhythm, no murmurs noted Spine: normal Carotid arteries: negative bruit Extremities: no edema Testing Electrocardiogram Date: 07/28/18 SB at 58bpm. RBBB. LAFB. (No significant change compared to 12/07/16 per cardio) Chest X-Ray Date: 07/28/18 Findings: + NAD No acute process. Mild stable cardiomegaly. Echocardiogram Date: 12/31/16 LVEF 50%. Technically difficult study due to patient's body habitus. Mild LV dysfunction. Mid to distal septum HK. Basal to mid inferior wall apex severe HK. Type I DD. Dilated IVC with reduced inspiratory collapse. No significant change from previous study dated 02/25/16 per report. Stress Test Date: 02/25/16 Type: exercise LVEF 50%. Baseline anterolateral, mid to distal anteroseptum and inferior wall HK. Negative stress EKG for ischemia at 85% MPHR. 9.1METS. Anterolateral and mid to distal anteroseptum remain hypokinetic consistent with scar. Inferior wall becomes akinetic consistent with ischemia (subsequent cardiac cath done ) Cardiac Catheterization Date: 03/02/16 Mid LAD 70%. CX 50%. RCA 20% lesion. EF 60%. Inferior wall/anterolateral HK. Other Testing Carotid duplex= 12/31/16= No significant stenosis in B/L ICA (<50%). Mild <50% right subclavian artery stenosis. B/L antegrade flow. Complex, calcified plaqie in B/L bulb and ICA. Laboratory Results 07/28/18 14:15 07/28/18 14:15 Blood Type O Positive 07/28/18 14:15 Antibody Screen NEGATIVE 07/28/18 14:15 PT 9.8 Seconds (9.0-12.0) 07/28/18 14:15 INR 1.0 (0.9-1.1) 07/28/18 14:15 APTT 24.6 Seconds (21.0-31.0) 07/28/18 14:15
--- NOTE | 2018-07-28 14:18 | PAT Medication Instructions ---
Medication Instructions Date of Service July 28, 2018 Home Medications bupropion HCl [Wellbutrin XL] 300 mg PO QAM celecoxib [Celebrex] 200 mg PO DAILY clopidogrel [Plavix] 75 mg PO DAILY hydrochlorothiazide 25 mg PO DAILY infliximab 0 mg IV Q8WK 05/10/18 nitroglycerin [Nitrostat] 1 tab SUBLINGUAL DIRECTED PRN pantoprazole [Protonix] 80 mg PO HS rosuvastatin [Crestor] 40 mg PO DAILY amlodipine-benazepril [Lotrel] 1 cap PO DAILY trazodone 50 mg PO DAILY venlafaxine 187.5 mg PO DAILY Ketoconazole 2% topical shampoo Ofloxacin 0.3% robin solution Hydochlorothiazide 25mg QAM Aldactone 25mg QAM Vitamin B12 daily Vitamin B6 daily Co Q 10 daily chondroitin glucosamine daily ASK your surgeon for instructions celecoxib [Celebrex] 200 mg PO DAILY ASK your prescriber and surgeon infliximab 0 mg IV Q8WK clopidogrel [Plavix] 75 mg PO DAILY STOP taking 2 weeks before surgery Co Q 10 daily chondroitin glucosamine daily STOP taking 24 hours before surgery Ketoconazole 2% topical shampoo DO NOT take the morning of surgery hydrochlorothiazide 25 mg PO DAILY amlodipine-benazepril [Lotrel] 1 cap PO DAILY Hydochlorothiazide 25mg QAM Aldactone 25mg QAM Vitamin B12 daily Vitamin B6 daily Take morning of surgery With a small sip of water, OTHERWISE NOTHING TO EAT OR DRINK AFTER MIDNIGHT: bupropion HCl [Wellbutrin XL] 300 mg PO QAM nitroglycerin [Nitrostat] 1 tab SUBLINGUAL DIRECTED PRN (if needed) pantoprazole [Protonix] 80 mg PO HS rosuvastatin [Crestor] 40 mg PO DAILY venlafaxine 187.5 mg PO DAILY Other Notes If you have any questions please call us at [phone] or [phone] or [phone] or [phone]
--- NOTE | 2018-07-28 14:33 | XRay Report ---
XR chest Pre-admission PA/Lat CLINICAL HISTORY: pat preoperative evaluation COMPARISON STUDY: 09/13/2017 FINDINGS: Mild stable cardiomegaly. Prior median sternotomy. Diaphragms smooth. Lungs are clear. IMPRESSION: No acute process. Mild stable cardiomegaly. The above report was generated using voice recognition software. It may contain grammatical, syntax or spelling errors. Electronically signed by: Tao Dai M.D. 07/28/2018 2:32 PM
[2018-07-28 15:16] LABS: Basophils # (auto) 0.02 K/uL (0-0.2); Basophils % (auto) 0.3 %; Eosinophils # (auto) 0.14 K/uL (0-0.5); Eosinophils % (auto) 2.1 %; Hematocrit (blood only) 40.8 % (42-52); Hemoglobin 14.1 g/dL (14.0-18.0); Immature Granulocytes # (auto) 0.01 K/uL (0.00-0.02); Immature Granulocytes % (auto) 0.1 %; Lymphocytes # (auto) 2.16 K/uL (1.2-3.4); Mean Corpuscular Hgb Conc 34.6 g/dL (32-36); Mean Corpuscular Volume 90.7 fL (80-100); Mean Platelet Volume 9.8 fL (7.4-10.4); Monocytes # (auto) 0.75 K/uL (0.11-0.59); Monocytes % (auto) 11.1 %; Neutrophils # (auto) 3.67 K/uL (1.4-6.5); Neutrophils % (auto) 54.4 %; Platelet Count 209 K/uL (130-400); RDW Coefficient of Variation 13.5 % (11.5-14.5); RDW Standard Deviation 44.7 fL (36.4-46.3); White Blood Count 6.75 K/uL (4.8-10.8)
[2018-07-28 15:23] LABS: BUN Creatinine Ratio 19.6 (10-20); Blood Urea Nitrogen 26 mg/dl (7-18); Calcium 8.8 mg/dl (8.5-10.1); Carbon Dioxide 28 mmol/L (21-32); Chloride 106 mmol/L (98-107); Creatinine Clr Calc Pharmacy 67.1 ml/min; Est GFR (African American) 62.2; Est GFR (Non-African American) 53.7; Glucose 86 mg/dl (70-99); Partial Thromboplastin Ratio 0.9; Partial Thromboplastin Time 24.6 Seconds (21.0-31.0); Potassium 3.5 mmol/L (3.5-5.1); Prothrombin Time 9.8 Seconds (9.0-12.0); Sodium 140 mmol/L (136-145)
[2018-07-28 15:26] LABS: C Reactive Protein < 0.29 mg/dl (0-0.29)
--- NOTE | 2018-08-11 15:40 | History and Physical Report ---
DATE OF ADMISSION: 08/18/2018 CHIEF COMPLAINT: Persistent left knee pain and discomfort. HISTORY OF PRESENT ILLNESS: The patient is a 68-year-old gentleman well known to me from previous right knee replacement as well as left hip replacement. He has got a long history of bilateral knee pain and discomfort. I have been treating for the past 6-7 years with intermittent injections and medicines. This has become less successful over time. He describes global pain in the left knee. He did have his right knee replaced in October of 2017 and has done pretty well from this. He is pretty happy with results and would like to have his left knee replaced. He has got global pain in the knee. It has increased going up and down stairs. He gets intermittent swelling, cracking, popping and mechanical symptoms and giving way. He would like to proceed with left knee replacement. PAST MEDICAL HISTORY: Significant for: 1. Coronary artery disease, status post heart attack in 1993 and 1995. 2. Hypertension. 3. Elevated cholesterol. 4. Sleep apnea with CPAP machine. 5. Arthritis. 6. Gastroesophageal reflux disease. 7. Mild obesity. PAST SURGICAL HISTORY: Previous surgeries include: 1. Right shoulder surgery. 2. Cardiac catheterization in 2015. 3. Left total hip replacement done October 2007. 4. Right knee replacement done 10/21/2017. ALLERGIES: None. CURRENT MEDICATIONS: Include Plavix. Remainder of his medicines are unlisted. SOCIAL HISTORY: A 68-year-old male. He lives in [place]. Does not smoke. No significant alcohol intake. FAMILY HISTORY: Negative. REVIEW OF SYSTEMS: Significant for history of heart history, but recently cleared for surgery. He got no current cardiac symptoms. No chest pain or shortness of breath. No known bleeding problems. He is on Plavix. No history of DVT or PE. PHYSICAL EXAMINATION: GENERAL: Reveals a healthy, pleasant, middle-aged male. Looks to be in pretty good health. HEENT: Benign. NECK: Supple. No lymphadenopathy. LUNGS: Clear to auscultation. HEART: Regular rate and rhythm. ABDOMEN: Soft, nontender, nondistended. EXTREMITIES: Grossly neurovascularly intact except as follows: Examination of his left knee reveals the patient ambulates independently. He has got a small knee effusion. He has got slight valgus alignment to his knee. He has got range of motion from 0-125. He has got significant patellofemoral crepitance. No pain with hip motion. He is neurologically intact. X-RAYS: X-rays of the left knee were reviewed. Shows moderate tibiofemoral arthritis and advanced patellofemoral arthritis. ASSESSMENT: A 68-year-old gentleman with a long history of bilateral knee pain and discomfort status post a right knee replacement with advanced left knee patellofemoral arthritis and less severe tibiofemoral arthritis. He failed conservative treatment. He would like to proceed with left knee replacement. PLAN: We will take him to the operating room and do a left total knee replacement. The risks and benefits of this procedure were explained to the patient including but not limited to DVT, PE, , infection, neurological injury, vascular injury, bleeding problem, pain, limited range of motion, stiffness, failure to relieve symptoms, incomplete relief of symptoms, need for further surgery in future, fracture, leg length inequality, nerve palsy, etc. The patient understands and desires to proceed. Informed consent was obtained. I emphasized to him that knee replacement for patellofemoral arthritis is not as predictable for tibial femoral arthritis. He has done pretty well from his other side. He understands and would like to proceed. He has stopped his Plavix a week before surgery. He is hoping to be discharged home using [facility] home health program.
[~2018-08-18 06:27] MED LIST changes: -ACET-24 PO; +ACETAMINOPHEN 500 MG TAB PO SCH; -AMLO10CA2 PO; -ASPI-320 PO; +BUPIVACAINE 0.5 % 5 MG/1 ML PF 10ML VIAL ONE; +BUPIVACAINE LIPOSOME/PF 266 MG, BUPIVACAINE/EPINEPHRINE 50 ML, SODIUM CHLORIDE 0.9% 30 ... INFIL SCH; -BUPRTAB51 PO; +CEFAZOLIN 2000MG 2,000 MG/15 ML SYR IV SCH; -CLB100 PO; -CLOP1TAB15 PO; -COQ10 PO; -ESCI1TAB10 PO; +FAMOTIDINE 20 MG TAB PO SCH; -FLUT0.15 NAE; +GABAPENTIN 300 MG PO SCH; -GLUCTAB7 PO; -HYDR25TA4 PO; -KETO2SHA TOP; +LR 500ML BOLUS, THEN 15ML/HR IV SCH; +LR 60ML/HR IV SCH; +METOCLOPRAMIDE HCL 10 MG TABLET PO SCH; -NTRGSL/4 UT; -PANT40TA PO; -RMCI IV; +ROPIVACAINE 0.5% 5 MG/ML 30 ML VIAL ONE; -ROSU40TA PO; -RXC5 PO; -VITAMIN B12 PO; -VITAMIN B6 PO; -VITAMIN D PO; -ZOLP10TA PO
[2018-08-18] MEDS ORDERED: TRANEXAMIC ACID 1,000 MG **IV Intra-op IV SCH (06:30)
--- NOTE | 2018-08-18 06:54 | History & Physical Bridge Note ---
Date of Service August 18, 2018 History & Physical Bridge Note I have examined the patient, reviewed the History & Physical and in the interval since the performance of the History & Physical I have noted the following changes of clinical significance: no changes noted
[2018-08-18] MEDS ORDERED: PROPOFOL IV EMULSION 10 MG/ML 20 ML VIAL IV ONE (07:54)
[2018-08-18] MEDS ORDERED: LIDOCAINE HCL 2% 2 ML VIAL/AMP(20MG/ML) INFIL ONE (07:54)
[2018-08-18] MEDS ORDERED: KETAMINE HCL INJ 50 MG/ML 10 ML VIAL ONE (07:55)
[2018-08-18] MEDS ORDERED: MIDAZOLAM HCL 1 MG/ML 2ML VIAL ONE (07:55)
[2018-08-18] MEDS ORDERED: SODIUM CHLORIDE 0.9% PF 50 ML VIAL ONE (08:47)
[2018-08-18] MEDS ORDERED: BUPIVACAINE LIPOSOME 1.3% 266 MG/20 ML VIAL INFIL ONE (08:47)
[2018-08-18] MEDS ORDERED: BACITRACIN INJ 50,000 UNIT VIAL ONE (08:47)
[2018-08-18] MEDS ORDERED: BUPIVACAINE 0.25% 30 ML VIAL ONE (08:47)
[2018-08-18] MEDS ORDERED: EpINEphrine HCL INJ 1 MG/ML 1ML SYRINGE ONE (08:48)
--- NOTE | 2018-08-18 10:46 | Post Operative Brief Note ---
Immediate Post Op Note v1 Date of Surgery August 18, 2018 Pre & Post Diagnosis Operation Date: 08/18/18 08:50 Pre-Op Diagnosis: Left Knee Degenerative Joint Disease Post-Op Diagnosis: Left Knee Degenerative Joint Disease Procedure Operation Date: 08/18/18 08:50 Actual Procedures p Left Total Knee Arthroplasty, Cemented(Left) - Chun Murphy MD Surgeon Chun Murphy MD Budget Report Clerk Olivia, PAC Estimated Blood Loss 50 Findings Consistent with Post-Op Diagnosis Fluids 1200 cc Specimens Left Knee Drains Blue Catheter Anesthesia Type Spinal MAC Complications none Disposition Accompanied Patient To Recovery: No Disposition: Recovery Room
[2018-08-18] MEDS ORDERED: ePHEDrine sulfate 50 MG/ML SYR ONE (10:58)
[2018-08-18] MEDS ORDERED: PHENYLEPHRINE 100MCG/ML 5ML SYR ONE (10:58)
--- NOTE | 2018-08-18 11:28 | XRay Report ---
XR knee LT 2V routine CLINICAL HISTORY: 68 years-old Male presenting with Surgical Post Op. TECHNIQUE: Frontal and crosstable lateral views of the left knee were obtained. COMPARISON: 10/13/2017. FINDINGS: There has been interval postsurgical changes of total left knee arthroplasty with patellar resurfacin g. Overlying skin kelsie. Expected intra-articular and soft tissue emphysema. No malalignment. Focus of periprosthetic lucency in the mid femoral metaphysis. No other lucency subjacent to the prosthesi s. No periprosthetic fracture. IMPRESSION: Expected postsurgical finding status post total left knee arthroplasty with patellar resurfacing. Electronically signed by: Suman Nguyen M.D. 08/18/2018 11:27 AM
[2018-08-18] MEDS ORDERED: TAMSULOSIN HCL 0.4 MG CAP PO PRN (11:55)
[2018-08-18] MEDS ORDERED: NITROGLYCERIN SL 0.4 MG/TAB TAB SL PRN (11:55)
[2018-08-18] MEDS ORDERED: ONDANSETRON INJ 2 MG/ML 2 ML VIAL IV PRN (11:55)
[2018-08-18] MEDS ORDERED: METOCLOPRAMIDE HCL INJ 5 MG/ML 2 ML VIAL IV PRN (11:55)
[2018-08-18] MEDS ORDERED: HYDROmorphone INJ 0.5 MG/0.5 ML SYR IV PRN (11:55)
[2018-08-18] MEDS ORDERED: BISACODYL 10 MG SUPP PR PRN (11:55)
[2018-08-18] MEDS ORDERED: ALUMINUM/MAGNESIUM SUSP 30 ML UDC PO PRN (11:55)
[2018-08-18] MEDS ORDERED: MAGNESIUM HYDROXIDE SUSP 30 ML UDC PO PRN (11:55)
[2018-08-18] MEDS ORDERED: OXYCODONE HCL IR 5 MG TAB (IMMEDIATE RELEASE) PO PRN (11:55)
[2018-08-18] MEDS ORDERED: ePHEDrine sulfate 50 MG/ML AMP IV PRN (12:05)
[2018-08-18] MEDS ORDERED: ATROPINE SULFATE 0.1 MG/ML 10ML SYR IV PRN (12:05)
[2018-08-18] MEDS ORDERED: HYDROmorphone INJ 1 MG/ML SYRINGE IV PRN (12:05)
--- NOTE | 2018-08-18 12:06 | Anesthesiology Progress Note ---
Date of Service August 18, 2018 Anesthesia Post Procedure Vital Signs Vital Signs: Temp Pulse Pulse Pulse Resp BP BP 08/18/18 11:30 36.5 C 68 18 144/85 H 08/18/18 11:26 71 131/82 08/18/18 11:25 67 08/18/18 11:22 67 08/18/18 11:21 67 140/92 08/18/18 11:20 36.7 C 69 08/18/18 11:16 68 138/81 08/18/18 11:15 68 08/18/18 11:11 66 129/81 08/18/18 11:10 69 08/18/18 11:06 70 139/75 08/18/18 11:05 70 08/18/18 11:01 70 140/77 08/18/18 11:00 71 08/18/18 10:56 68 131/89 08/18/18 10:54 67 127/69 08/18/18 10:53 36.0 C L 69 68 16 127/69 08/18/18 07:28 36.6 C 69 16 133/82 Pulse Ox 08/18/18 11:30 100 08/18/18 11:26 97 08/18/18 11:25 97 08/18/18 11:22 98 08/18/18 11:21 100 08/18/18 11:20 99 08/18/18 11:16 98 08/18/18 11:15 99 08/18/18 11:11 99 08/18/18 11:10 98 08/18/18 11:06 97 08/18/18 11:05 98 08/18/18 11:01 98 08/18/18 11:00 99 08/18/18 10:56 99 08/18/18 10:54 98 08/18/18 10:53 98 08/18/18 07:28 95 Pain Intensity Left Knee: Pain Intensity: 0 Notes Mental Status: alert / awake / arousable Patient Amnestic to Procedure: Yes Nausea / Vomiting: adequately controlled Pain: adequately controlled Airway Patency, RR, SpO2: stable & adequate BP & HR: stable & adequate Hydration State: stable & adequate Anesthetic Complications: no major complications apparent and Pt Satisfied with anesthetic care
[2018-08-18] MEDS: SODIUM CHLORIDE 0.9% 1000ML 1,000 ML IV SCH ×2 (14:06→23:33)
--- NOTE | 2018-08-18 15:51 | Progress Note ---
DATE: 08/18/2018 SUBJECTIVE: A 68-year-old gentleman postop from a left knee replacement. He is doing pretty well. He does not have any pain yet. No chest pain, no shortness of breath. Not feeling dizzy or lightheaded. OBJECTIVE: VITAL SIGNS: Temperature 36.4. Stable. GENERAL: Examination reveals a pleasant elderly male. He is lying in bed and looks quite comfortable talking to his . RESPIRATORY: Lungs are clear to auscultation. CARDIOVASCULAR: Heart has a regular rate and rhythm. GASTROINTESTINAL: Abdomen is soft, nontender, nondistended. EXTREMITIES: Grossly neurovascularly intact except as follows: Examination of the left lower extremity reveals the leg to be well aligned. Dressing is clean, dry, and intact. He can dorsiflex and plantarflex his foot appropriately. He is neurologically intact. IMAGING: X-rays of the left knee from recovery room reviewed. It showed a left cemented posterior stabilized total knee arthroplasty. Components looked to be in good position. No signs of problems. ASSESSMENT: A 68-year-old gentleman with a pretty significant cardiac history postop from a left knee replacement. He is doing well. His pain is controlled. He is neurologically intact. No cardiac symptoms. PLAN: 1. DVT prophylaxis including thigh-high TEDs and SCDs. Will start him back on his Plavix starting tomorrow. Will use that for DVT prophylaxis. 2. PT/OT. Weight bear as tolerated. Left total knee protocol. 3. Pain control, doing well with current pain regimen. 4. IV antibiotics x24 hours. 5. Disposition: Plan to discharge to home with some home health once adequately recovered.
[2018-08-18] MEDS: FERROUS GLUCONATE 324 MG TAB PO SCH (16:17)
[2018-08-18] MEDS: ACETAMINOPHEN 500 MG TAB PO SCH ×2 (16:17→23:25)
[2018-08-18] MEDS ORDERED: TRANEXAMIC ACID 1,000 MG in 0.9 % SODIUM CHLORIDE 100 ML IV SCH (17:00)
[2018-08-18] MEDS: KETOROLAC TROMETHAMINE 15 MG/ML VIAL IV SCH ×2 (19:00→23:20)
[2018-08-18] MEDS: CEFAZOLIN 2000MG 2,000 MG/15 ML SYR IV SCH (19:10)
--- NOTE | 2018-08-18 19:32 | Operative Report ---
DATE OF OPERATION: 08/18/2018 SURGEON: Chun Murphy MD [employer]UM[employer] PSYCHOLOGIST: RAEGAN Fernando PREOPERATIVE DIAGNOSIS: Left knee degenerative joint disease. POSTOPERATIVE DIAGNOSIS: Same. PROCEDURE PERFORMED: Left cemented posterior stabilized total knee arthroplasty. COMPLICATIONS: None. ESTIMATED BLOOD LOSS: 50 mL. FLUID REPLACEMENT: 1200 mL of crystalloid fluid replacement. ANESTHESIA: Spinal with adductor canal block. DRAINS: None. SPECIMENS: Left knee sent for pathology. TOURNIQUET TIME: 60 minutes at 300 mmHg. OPERATIVE INDICATIONS: The patient is a 68-year-old very active gentleman who has had a long history of joint problems. He has had previous hip and knee surgery. He has been a long-term patient of mine treated conservatively. This became less successful over time. 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 He failed conservative treatment and elected to proceed with operative treatment. He was fully aware that knee replacement for patellofemoral arthritis is not quite as predictable as tibiofemoral arthritis. OPERATIVE FINDINGS: Operative findings revealed advanced left knee DJD, most severe in the patellofemoral compartment with grade 4 [id number] disease and eburnation of the medial femoral condyle and trochlea. He had some focal grade 4 changes in the lateral compartment. The medial femoral condyle was pretty well preserved, but he did have some grade 4 changes in the medial tibial plateau. He did have a valgus deformity to his knee. OPERATIVE IMPLANTS: Operative implants consisted of: 1. A Biomet Vanguard size 70 left posterior bifemoral component. 2. Biomet size 75 tibial tray. 3. A 10 mm posterior stabilized polyethylene insert. 4. A 31 x 8 all poly patella. OPERATIVE PROCEDURE: The patient was taken to the operating room, identified and placed on the operating table in supine position. All contact areas were appropriately padded. IV antibiotics were provided by anesthesia team. A spinal anesthetic and adductor canal block had been provided in the holding area. Blue catheter was placed in sterile fashion. Left thigh tourniquet was then placed and left lower extremity was then prepped and draped in the usual sterile fashion. The left leg was elevated and exsanguinated with Esmarch and tourniquet was placed at 300 mmHg. An anterior approach to the left knee was then performed through a longitudinal incision centered over the patella. Sharp dissection was carried through the subcutaneous tissues down to the level of the extensor mechanism. A medial parapatellar arthrotomy incision was made. Some subperiosteal dissection was carried out medially. The fat pad was resected from beneath the patellar tendon. The lateral patellofemoral ligament was released. Patella was everted and knee was flexed. The osteophytes were taken off the distal femur. The ACL and PCL were then released from the distal femur and the tibia subluxated anteriorly. The external tibial alignment jig was then placed in the anterior face of the tibia and adjusted 14 mm medially. Proximal tibial cut was made to remove about 3-4 mm of bone from the most deficient aspect of the medial tibial plateau. The tibia was sized to a size 75. Attention was then drawn to the femur. The distal femur was entered with a sharp drill. The intramedullary guide was placed. A left 5-degree valgus cutting guide was placed. Distal femoral cutting block was pinned in place. Distal femoral cut was made to take an additional 3 mm of bone off the distal femur. The femur was then sized to a size 70. We did downsize this slightly. The AP cutting block was pinned parallel to the epicondylar axis, which was 6 degrees of external rotation. The anterior cut, anterior chamfer cut, posterior cut, posterior chamfer cuts were made. Box cutting guide was placed and adjusted slightly lateral and the box cut was made. The knee was brought out into extension. I did do some pie crusting of the IT band to equalize the extension gap taking great care to protect the peroneal nerve at all times. I did release the popliteus in order to equalize the flexion gap. Some osteophytes were taken off the posterior aspect of the femur. The remnants of the medial and lateral menisci were excised. A left size 70 posterior stabilized femoral trial component was then placed. The tibial tray was pinned in maximum external rotation and drill and stem punch were used to create a defect in the proximal tibia for the tibial tray. The knee was then trialed and a 10 mm insert fit most appropriately. Attention was then drawn to the patella. Patella was cleaned of all soft tissues. The patella thickness measured 22 mm in thickness and was cut down to 14. It was sized to a size 31 patella. I did downsize this a bit to try and medialize the patella due to the poor patellar tracking and severe arthritis. The lug holes were drilled for the 31 patella. The lateral osteophyte was removed. Patellar button was placed. Knee was taken through range of motion. Patella tracked nicely with no thumbs test. Attention was then drawn toward placement of permanent components. All trial components were removed. A bone plug was placed in the distal femur to limit blood loss. A double batch Palacos G cement was mixed. A Biomet Vanguard size 70 left posterior stabilized femoral component, size 75 tibial tray, a 10 mm posterior stabilized polyethylene insert, and a 31 x 8 all poly patella were then cemented in place. Knee was brought on into full extension until cement hardened. A final cement check was then performed. The pericapsular tissues were injected with a total of 100 mL of combination of 20 mL of Exparel, 30 mL of normal saline, 50 mL of 0.25% Marcaine with epinephrine. The patient did receive 1 gram of tranexamic acid. The tourniquet was then let down for a final tourniquet time of 60 minutes. Hemostasis was assured with the use of electrocautery. The extensor mechanism was then closed with a combination of #1 PDS suture and #1 Vicryl suture in a [id number] fashion. His extensor mechanism was checked and found to be intact. The subcutaneous tissues were then closed with #2 Dexon suture in a buried interrupted fashion. Skin was closed with skin kelsie. Leg was then cleaned, dried, and a sterile dressing of Xeroform, 4 x 4s, sterile cast padding, and Demarco bandage were applied. The patient was transferred to the recovery room in stable condition. The patient tolerated the procedure well with no complications. All needle and sponge counts were correct at the end of the operation. I attest to the content of the Intraoperative Record and any orders documented therein. Any exception s are noted below.
[2018-08-18] MEDS: TAPENTADOL HCL ER 50 MG TABCR PO SCH (20:51)
[2018-08-18] MEDS: DOCUSATE SODIUM 100 MG CAP PO SCH (20:52)
[2018-08-18] MEDS: TRAZODONE HCL 50 MG TAB PO SCH (20:52)
[2018-08-18] MEDS: PANTOprazole 40 MG TAB PO SCH (20:53)
[2018-08-18] MEDS: SENNA 8.6 MG TAB PO SCH (20:54)
[2018-08-19] MEDS: CEFAZOLIN 2000MG 2,000 MG/15 ML SYR IV SCH (02:20)
[2018-08-19 05:52] LABS: Hematocrit (blood only) 36.6 % (42-52); Hemoglobin 12.5 g/dL (14.0-18.0); Mean Corpuscular Hgb Conc 34.2 g/dL (32-36); Mean Corpuscular Volume 90.8 fL (80-100); Mean Platelet Volume 9.7 fL (7.4-10.4); Platelet Count 169 K/uL (130-400); RDW Coefficient of Variation 13.2 % (11.5-14.5); RDW Standard Deviation 43.7 fL (36.4-46.3); Red Blood Count 4.03 M/uL (4.7-6.1); White Blood Count 9.59 K/uL (4.8-10.8)
[2018-08-19 06:24] LABS: BUN Creatinine Ratio 15.6 (10-20); Calcium 8.1 mg/dl (8.5-10.1); Creatinine Clr Calc Pharmacy 76.3 ml/min; Est GFR (African American) 73.3; Est GFR (Non-African American) 63.2; Potassium 3.7 mmol/L (3.5-5.1)
[2018-08-19] MEDS: KETOROLAC TROMETHAMINE 15 MG/ML VIAL IV SCH ×5 (06:35→23:21)
[2018-08-19] MEDS: ACETAMINOPHEN 500 MG TAB PO SCH ×3 (08:27→23:20)
[2018-08-19] MEDS: AMLODIPINE BESYLATE 5 MG TAB PO SCH (08:28)
[2018-08-19] MEDS: ROSUVASTATIN CALCIUM 20 MG TAB PO SCH (08:28)
[2018-08-19] MEDS: DOCUSATE SODIUM 100 MG CAP PO SCH ×2 (08:28→20:47)
[2018-08-19] MEDS: hydroCHLOROthiazide 25 MG TAB PO SCH (08:28)
[2018-08-19] MEDS: VENLAFAXINE HCL XR 150 MG CAPXR PO SCH (08:28)
[2018-08-19] MEDS: BuPROPion XL 300 MG TABCR PO SCH (08:28)
[2018-08-19] MEDS: VENLAFAXINE HCL XR 37.5 MG CAPXR PO SCH (08:28)
[2018-08-19] MEDS: CLOPIDOGREL BISULFATE 75 MG TAB PO SCH (08:28)
[2018-08-19] MEDS: FERROUS GLUCONATE 324 MG TAB PO SCH ×2 (08:29→16:33)
[2018-08-19] MEDS: ENALAPRIL MALEATE 10 MG TAB PO SCH (08:29)
[2018-08-19] MEDS: FLUTICASONE PROPIONATE NA SPR 16 GM BTL SCH (08:29)
[2018-08-19] MEDS: SPIRONOLACTONE 25 MG TAB PO SCH (08:29)
[2018-08-19] MEDS: MULTIVITAMIN TAB PO SCH (08:29)
[2018-08-19] MEDS: TAPENTADOL HCL ER 50 MG TABCR PO SCH ×2 (08:36→20:53)
--- NOTE | 2018-08-19 08:55 | Progress Note ---
DATE: 08/19/2018 SUBJECTIVE: A 68-year-old gentleman, postop day #1 from left knee replacement. He is doing pretty well. No pain at all in bed. He did ambulate yesterday with some moderate discomfort. No chest pain or shortness of breath. Not feeling dizzy or lightheaded. OBJECTIVE: VITAL SIGNS: Temperature 36.9. Vital signs stable. GENERAL: Physical examination reveals a pleasant, middle-aged male. He is lying in bed, looks pretty comfortable. EXTREMITIES: Examination of the left leg reveals the leg to be well aligned. Dressing is clean, dry and intact. He can do a good straight leg raise this morning. He can dorsiflex and plantarflex his foot appropriately. He is neurologically intact. LABORATORY DATA: Hemoglobin 12.5. Hematocrit 36.6. Electrolytes are stable. ASSESSMENT: A 68-year-old gentleman with history of underlying cardiac disease, postoperative day #1 from left knee replacement, doing well. His pain is controlled. He is neurologically intact. PLAN: 1. DVT prophylaxis including thigh-high TEDs, SCDs and we will start him back on his Plavix today. 2. PT/OT. Weight bear as tolerated. Left total knee protocol. 3. Pain control, doing well with current pain regimen. 4. History of some inner ear problems. We will see if we have ofloxacin drops that he uses at home. If not, his can hopefully bring some in for him. 5. Disposition: Plan to discharge to home with home health once adequately recovered.
[2018-08-19] MEDS ORDERED: ALDACTONE PO SCH (09:00)
[2018-08-19] MEDS ORDERED: PANTOprazole 40 MG TAB PO SCH (09:00)
[2018-08-19] MEDS: OFLOXACIN 0.3% OP SOLN 5 ML BTL OT SCH ×2 (09:45→20:49)
--- NOTE | 2018-08-19 10:11 | Anesthesiology Progress Note ---
Date of Service August 19, 2018 Anesthesia Post Procedure Vital Signs Vital Signs: Temp Pulse Pulse Pulse Resp BP BP 08/19/18 07:00 36.9 C 73 17 125/78 08/19/18 03:15 36.8 C 81 16 127/76 08/18/18 23:03 36.3 C L 75 16 150/80 H 08/18/18 19:27 36.8 C 76 18 143/87 H 08/18/18 14:59 36.4 C L 70 16 136/78 08/18/18 14:19 71 18 153/89 H 08/18/18 13:30 77 16 155/91 H 08/18/18 12:22 69 18 152/87 H 08/18/18 12:09 68 18 151/90 H 08/18/18 11:30 36.5 C 68 18 144/85 H 08/18/18 11:26 71 131/82 08/18/18 11:25 67 08/18/18 11:22 67 08/18/18 11:21 67 140/92 08/18/18 11:20 36.7 C 69 08/18/18 11:16 68 138/81 08/18/18 11:15 68 08/18/18 11:11 66 129/81 08/18/18 11:10 69 08/18/18 11:06 70 139/75 08/18/18 11:05 70 08/18/18 11:01 70 140/77 08/18/18 11:00 71 08/18/18 10:56 68 131/89 08/18/18 10:54 67 127/69 08/18/18 10:53 36.0 C L 69 68 16 127/69 Pulse Ox 08/19/18 07:00 98 08/19/18 03:15 96 08/18/18 23:03 93 08/18/18 19:27 98 08/18/18 14:59 100 08/18/18 14:19 99 08/18/18 13:30 100 08/18/18 12:22 95 08/18/18 12:09 92 08/18/18 11:30 100 08/18/18 11:26 97 08/18/18 11:25 97 08/18/18 11:22 98 08/18/18 11:21 100 08/18/18 11:20 99 08/18/18 11:16 98 08/18/18 11:15 99 08/18/18 11:11 99 08/18/18 11:10 98 08/18/18 11:06 97 08/18/18 11:05 98 08/18/18 11:01 98 08/18/18 11:00 99 08/18/18 10:56 99 08/18/18 10:54 98 08/18/18 10:53 98 Pain Intensity Left Knee: Pain Intensity: 8 Notes Mental Status: alert / awake / arousable Patient Amnestic to Procedure: Yes Nausea / Vomiting: adequately controlled Pain: improving with treatment (8/10 with movement; 0/10 without movement) Airway Patency, RR, SpO2: stable & adequate BP & HR: stable & adequate Hydration State: stable & adequate Neuraxial Anesthesia: was administered and sensory block resolved
[2018-08-19] MEDS: PANTOprazole 40 MG TAB PO SCH (20:47)
[2018-08-19] MEDS: TRAZODONE HCL 50 MG TAB PO SCH (20:48)
[2018-08-19] MEDS: SENNA 8.6 MG TAB PO SCH (20:48)
[2018-08-20] MEDS: KETOROLAC TROMETHAMINE 15 MG/ML VIAL IV SCH ×2 (05:56→11:31)
--- NOTE | 2018-08-20 08:31 | Progress Note ---
DATE: 08/20/2018 SUBJECTIVE: A 68-year-old gentleman postop day 2 from a left knee replacement. He is doing pretty well. Pain is controlled. No chest pain or shortness of breath. Therapy has gone well. Not feeling dizzy or lightheaded. OBJECTIVE: VITAL SIGNS: Temperature 36.6. Vital signs stable. GENERAL: Physical examination shows a pleasant, middle-aged male. He is sitting in his bedside chair and looks pretty comfortable. EXTREMITIES: Examination of the left leg reveals incision to be clean, dry with just a little bit of drainage inferiorly. Not a lot of swelling. Some mild bruising. Calf is soft and supple. He is neurologically intact. ASSESSMENT: A 68-year-old gentleman postop day 2 from a left knee replacement, doing well. His pain is controlled. He is neurologically intact. PLAN: 1. DVT prophylaxis including thigh-high TEDs, SCDs, and Plavix. 2. PT/OT. Weight bear as tolerated. Left total knee protocol. 3. Pain control, doing well with current pain regimen. 4. Disposition: Plan to discharge to home with some home health after therapy in a.m.
[2018-08-20] MEDS: ACETAMINOPHEN 500 MG TAB PO SCH (08:32)
[2018-08-20] MEDS: ENALAPRIL MALEATE 10 MG TAB PO SCH (08:33)
[2018-08-20] MEDS: BuPROPion XL 300 MG TABCR PO SCH (08:33)
[2018-08-20] MEDS: DOCUSATE SODIUM 100 MG CAP PO SCH (08:33)
[2018-08-20] MEDS: VENLAFAXINE HCL XR 37.5 MG CAPXR PO SCH (08:34)
[2018-08-20] MEDS: FERROUS GLUCONATE 324 MG TAB PO SCH (08:34)
[2018-08-20] MEDS: CLOPIDOGREL BISULFATE 75 MG TAB PO SCH (08:34)
[2018-08-20] MEDS: hydroCHLOROthiazide 25 MG TAB PO SCH (08:34)
[2018-08-20] MEDS: AMLODIPINE BESYLATE 5 MG TAB PO SCH (08:34)
[2018-08-20] MEDS: SPIRONOLACTONE 25 MG TAB PO SCH (08:34)
[2018-08-20] MEDS: VENLAFAXINE HCL XR 150 MG CAPXR PO SCH (08:35)
[2018-08-20] MEDS: FLUTICASONE PROPIONATE NA SPR 16 GM BTL SCH (08:35)
[2018-08-20] MEDS: MULTIVITAMIN TAB PO SCH (08:35)
[2018-08-20] MEDS: ROSUVASTATIN CALCIUM 20 MG TAB PO SCH (08:35)
[2018-08-20] MEDS: OFLOXACIN 0.3% OP SOLN 5 ML BTL OT SCH (08:36)
[2018-08-20] MEDS: TAPENTADOL HCL ER 50 MG TABCR PO SCH (08:41)
--- NOTE | 2018-08-26 11:39 | Discharge Summary ---
ADMITTING PHYSICIAN AND SURGEON: Dr. Murphy. ADMITTING DIAGNOSIS: Left knee degenerative joint disease. SURGERY PERFORMED: Left total knee arthroplasty. SECONDARY DIAGNOSES: Coronary artery disease, hypertension, elevated cholesterol, sleep apnea, arthritis, gastroesophageal reflux disease, mild obesity. CONSULTS: None obtained. HISTORY AND PHYSICAL EXAMINATION: Well documented in the patient's chart. HOSPITAL COURSE: The patient was admitted on 08/18/2018, underwent total knee arthroplasty, tolerated the procedure well. There were no complications. He was transferred to the PACU postoperatively and later to the orthopedic floor for further care. He was given Ancef for antibiotic prophylaxis, LENIN stockings, SCDs and Plavix for DVT prophylaxis. Hemoglobin, hematocrit and vital signs were monitored during his hospital stay and remained stable, did not require any blood transfusions. There were no complications. By postoperative day 2, he was tolerating a regular diet, pain was controlled with oral pain medicine. He was participating in physical therapy. On postop day 2, he was discharged home, set up with home health services. He was instructed to continue his home medications, continue physical therapy, weightbearing as tolerated, LENIN stockings. Follow up approximately [address] Murphy or sooner if there are any problems or concerns.
== END 2018-08-20 13:53 | disposition home health service (06) | DRG 470 ==
LOC: ASU 06:27 → 3E 10:53